=== PATIENT | male | born 1950 | race Caucasian/White ===

== ENCOUNTER 2016-12-08 17:39 | Emergency (ER) | payer MEDICARE, OTHER ==
[2016-12-08 17:59] VITALS: BP 144/81
[2016-12-08] MEDS ORDERED: KETOROLAC TROMETHAMINE 30 MG/ML VIAL IM ONE (18:15)
[2016-12-08] MEDS ORDERED: KETOROLAC TROMETHAMINE 30 MG/ML VIAL ONE (18:19)
--- NOTE | 2016-12-08 18:23 | ERNOTE ---
Trauma/Assault HPI - Narrative Date of Service: 12/08/16 - General Stated Complaint: RIB PAIN Time Seen by Provider: 12/08/16 18:10 Source: patient Exam Limitations: no limitations - Immun/Allergies/Home Medications Immunizations: IMMUNIZATION HX Immunizations Up to Date Yes Immunizations Comment shingles History of Influenza Vaccine Yes Hx Pneumococcal Vaccination Yes Allergies/Adverse Reactions: Allergies No Known Allergies Allergy (Verified 12/08/16 17:59) Home Medications: HOME MEDICATIONS Albuterol Sulfate [Proair Hfa] 1 each INH DAILY 12/08/16 [Last Taken Unknown] Ascorbic Acid [Vitamin C] 500 mg PO DAILY 12/08/16 [Last Taken Unknown] Atorvastatin Calcium 80 mg PO DAILY 12/08/16 [Last Taken Unknown] Calcium Polycarbophil [Fibercon] PO DAILY 12/08/16 [Last Taken Unknown] Cholecalciferol [Vitamin D] 1 each PO DAILY 12/08/16 [Last Taken Unknown] HYDROcodone/ACETAMINOPHEN [[place] 5-325] 1 each PO Q6H #30 tablet 12/08/16 [Last Taken Unknown] Hydrochlorothiazide [Hydrodiuril] 25 mg PO DAILY 12/08/16 [Last Taken Unknown] Ipratropium [place] [Atrovent] 0.5 IN PRN PRN 12/08/16 [Last Taken Unknown] Levothyroxine Sodium [Synthroid] 100 mcg PO DAILY 12/08/16 [Last Taken Unknown] Multivitamin with Folic Acid [One Daily Multivitamin Tablet] 1 each PO DAILY [Last Taken Unknown] Potassium Chloride [K-Dur] 20 meq PO DAILY 12/08/16 [Last Taken Unknown] Tiotropium [place] [Spiriva Respimat] 1 each INH DAILY 12/08/16 [Last Taken Unknown] Toprol Xl 25 mg PO DAILY 12/08/16 [Last Taken Unknown] Tramadol HCl [Rybix Odt] 50 mg PO PRN PRN 12/08/16 [Last Taken Unknown] Travoprost [Travatan Z] 5 ml OP DAILY 12/08/16 [Last Taken Unknown] Vitamin B12 500 mg PO DAILY 12/08/16 [Last Taken Unknown] - Pain Pain Score #1 Pain Score: 10 - History of Present Illness Date (Duration): 12/08/16 Time (Timing): 08:00 Narrative: patient is a 66 year old male who presents to [facility] with complaints of right rib cage pain after falling this morning about 0800. Patient states he is currently building a train set and was leaning over painting. States he lost his balance falling into the counter. [place] immediate pain to right rib cage area directly under right breast area. Denies head or back pain. States took Tramadol about 1200 with little relief Location Occurred: Reports: home Pain Location: Reports: chest Method of Injury: Reports: fall Severity: mild Modifying Factors - (Worsens): Reports: movement Loss of Consciousness: Reports: no loss of consciousness Associated Symptoms - Trauma: Reports: other - rib cage pain. Denies: headache , confusion, dizziness, chest pain, shortness of breath, abdominal pain Review of Systems - Review of Systems Constitutional: Present: no symptoms reported EYE: Present: no symptoms reported ENT: Present: no symptoms reported Respiratory: Present: no symptoms reported. Absent: shortness of breath, cough Cardiology: Present: no symptoms reported. Absent: chest pain, palpitations, syncope Gastrointestinal/Abdominal: Present: no symptoms reported Genitourinary: Present: no symptoms reported Musculoskeletal: Present: no symptoms reported. Absent: back pain, muscle pain Skin: Present: no symptoms reported Neurological: Present: no symptoms reported Endocrine: Present: no symptoms reported Hematologic/Lymphatic: Present: no symptoms reported Psych: Present: no symptoms reported - Patient's Past Medical History Patient History - Medical: Diabetes Type 2, Osteoarthritis Patient History - Cardiac/Respiratory: COPD Patient History - Cancer: No Hx of Cancer Patient History - Surgical Procedures: Colonoscopy, Cardiac stent, Pacemaker Patient History - Other: None - Social History Living Situations: alone Abuse History: No History of abuse Psych History: No pertinent hx Smoking Status: Former smoker Do you dip or chew tobacco: No Alcohol Use: none Drug Use: none - Immunizations Immunizations Up to Date: Yes Hx Pneumococcal Vaccination: Yes History of Influenza Vaccine: Yes Physical Exam - Physical Exam General Appearance: Present: wd/wn, alert, no apparent distress Eye Exam: Normal inspection: bilateral, PERRL: bilateral Neck: Present: normal inspection, nontender, supple, full range of motion. Absent: limited range of motion, lymphadenopathy (R), lymphadenopathy (L) Respiratory: Present: no respiratory distress, normal breath sounds, no accessory muscle use, chest nontender, lungs clear. Absent: chest tenderness, respiratory distress, accessory muscle use, crackles, rales, rhonchi, stridor, wheezing Cardiovascular/Chest: Present: regular rate, rhythm, no murmur, normal peripheral pulses, other - right rib cage pain under right breast area Peripheral Pulses: N=norm/S=strong/W=weak/B=bound/A=absent: Radial (R): Normal, Radial (L): Normal Gastrointestinal/Abdominal: Present: normal bowel sounds, nontender, nondistended, soft, no organomegaly Rectal Exam: Present: deferred Male Genitals Exam: Present: deferred Back Exam: Present: normal inspection, normal range of motion, no CVA tenderness , no vertebral tenderness Extremity Exam: Present: normal inspection, non-tender, normal range of motion, no edema Neurological Exam: Present: alert, oriented, normal mood/affect, no motor/ sensory deficits Skin Exam: Present: normal color, warm/dry Lymphatic Exam: Present: no adenopathy ED Progress - Vital Signs Patient's Vital Signs:: I have reviewed the patient's vital signs. Vital Signs: Vital Signs 12/08/16 17:51 Temperature 37.1 C Pulse Rate 77 Respiratory 17 Rate Blood Pressure 144/81 O2 Sat by Pulse 95 Oximetry - X-Ray X-Ray #1 X-Ray: chest Interpretation: Reviewed by me X-ray Comments: bruised vs cracked rib, no flail chest - Progress/Reassessment Chief Complaint: Fall Progress Note-Subjective: 12/08/16 19:16 Pain has lessened to 5/10 Departure Clinical Impression: Contusion of rib on right side Qualifiers: Encounter type: initial encounter Qualified Code(s): S20.211A - Contusion of right front wall of thorax, initial encounter - Departure Disposition: Home Follow Up Needed Instructions: Rib Contusion Additional Instructions: Rib bruising versus cracked ribs. Unable to fully determine on radiology films yet treatment is same. Take [place] for pain, no alcohol or driving. Very important to cough frequently. Use pillow or hand to splint painful area and force self to take deep breaths and cough. Follow up with primary if pain worsens or SOB. At higher risk for pneumonia so watch for fever, chills, body aches, colored sputum. Follow up if these symptoms occur. [place] can make you dizzy/tired. Be careful changing positions. Lots of water since narcotics can increase risk of constipation Referrals: Abhinav Law MD [Primary Care Provider] - Prescriptions: HYDROcodone/ACETAMINOPHEN [[place] 5-325] 1 each PO Q6H #30 tablet
--- OUTSIDE RECORDS SUMMARY | 2016-12-08 18:25 | XMS REPORT | Continuity of Care Document ---
:1950 Author Organization [facility] ([facility]) [place] [address] Phone [phone] Care Team Providers Name Role Phone Vicki Hou Primary Care Provider [phone] Source Comments This disclosure is being made pursuant to the Care Everywhere program, applicable federal and state laws, and may not contain all informaitonavailable regarding this patient.[facility] ([facility]) Active Allergies and Adverse Reactions No Known Allergies Current Medications Prescription Sig. Disp. Refills Start Date End Date Status levothyroxine 150 mcg Take 150 mcg by Active tablet mouth every morning before breakfast atorvastatin 80 mg tablet Take 80 mg by Active mouth every evening hydrochlorothiazide 25 mg Take 50 mg by Active tablet mouth daily potassium chloride 20 mEq Take 20 mEq by Active XR tablet mouth daily albuterol-ipratropium Use 3 mL by Active 2.5-0.5 mg/3 mL inhalation every inhalation solution 6 hours as needed albuterol 90 Use 2 Puffs by Active mcg/Actuation inhaler inhalation every 6 hours as needed metFORMIN 500 mg tablet Take 500 mg by Active mouth 2 times daily with meals ASCORBATE CALCIUM Active (VITAMIN C PO) cyanocobalamin (VITAMIN Active B-12) PO travoprost (TRAVATAN Z) 1 Drop daily. Active 0.004 % ophthalmic solution metoPROLol succinate 25 Take 1 tablet 90 tablet 3 06/11/2016 Active mg XL tablet (25 mg total) by mouth daily. Active Problems Problem Noted Date Cardiac pacemaker in situ, [employer]tronic 06/06/2015 COPD (chronic obstructive pulmonary disease) 06/06/2015 Diabetes 06/06/2015 Asim type 2 second degree heart block 03/21/2015 Coronary artery disease Overview: stent to LAD Hyperlipidemia Hypertension Social History Tobacco Use Types Packs/Day Years Used Date Former Smoker Smokeless Tobacco: Never Used Alcohol Use Drinks/Week oz/Week Comments No Last Filed Vital Signs Vital Sign Reading Time Taken Blood Pressure 128/80 06/11/2016 10:09 AM CDT Pulse 79 06/11/2016 10:09 AM CDT Temperature - - Respiratory Rate - - Height 1.702 m (5' 7.01") 06/11/2016 10:10 AM CDT Weight 96.163 kg (212 lb) 06/11/2016 10:09 AM CDT Body Mass Index 33.2 06/11/2016 10:09 AM CDT Oxygen Saturation - - Plan of Care Date Type Specialty Providers Description 07/08/2017 Appointment Heart and Vascular Aden Caldera MD Chief Comp: Patient [address] [place] [address] Visit [phone] (Fax) Health Maintenance Due Date Last Done Comments HCV Screening 1950 Hepatitis B Vaccine (1 of 3 - Primary Series) 1950 Tdap Vaccine 1960 DIABETIC: Cholesterol 1968 Diabetic: Hdl 1968 DIABETIC: Hemoglobin A1C 1967 Diabetic: Ldl 1968 DIABETIC: Microalbumin 1968 DIABETIC: Triglycerides 1968 Td Vaccine 1968 Colonoscopy 1999 Prostate Cancer Screening 1999 Zoster Vaccine 2009 Pneumococcal Vaccine (1 of 2 - PCV13) 2014 DIABETIC: Foot Exam 06/06/2015 DIABETIC: Retinal Eye Exam 06/06/2015 Influenza Vaccine: Seasonal (#1) 04/22/2016 Results from Last 3 Months Not on file
[2016-12-08] MEDS ORDERED: HYDROcodone/ACETAMINOPHEN 1 EACH TABLET PO ONE (19:37)
[2016-12-08] MEDS ORDERED: HYDROcodone/ACETAMINOPHEN 1 EACH TABLET ONE (19:39)
== END 2016-12-08 19:46 | disposition home or self-care (01) ==
LOC: ER 17:39
DX: S20.211A Contusion of right front wall of thorax, initial encounter (principal); W18.39XA Other fall on same level, initial encounter; Y93.89 Activity, other specified; Y92.009 Unspecified place in unspecified non-institutional (private) residence as the place of occurrence of the external cause; Y99.8 Other external cause status; E11.9 Type 2 diabetes mellitus without complications; M19.90 Unspecified osteoarthritis, unspecified site

== ENCOUNTER 2016-12-31 06:40 | Inpatient (IN) | payer MEDICARE, OTHER ==
[~2016-12-31 06:40] MED LIST: MORPHINE SULFATE 15 MG TABLET.SA PO PRN; ROPIVACAINE HCL/PF 100 MG, EPINEPHrine 0.2 MG, KETOROLAC TROMETHAMINE 30 MG in NORMAL S... IJ PRN; TRANEXAMIC ACID 1,000 MG in NORMAL SALINE 100 ML IV PRN; ceFAZolin SODIUM 1 GM VIAL IV PRN
--- OUTSIDE RECORDS SUMMARY | 2016-12-31 06:44 | XMS REPORT | Continuity of Care Document ---
:1950 Author Organization [facility] ([facility]) [place] [address] Phone [phone] Care Team Providers Name Role Phone Vicki Hou Primary Care Provider [phone] Source Comments This disclosure is being made pursuant to the Care Everywhere program, applicable federal and state laws, and may not contain all informaitonavailable regarding this patient.[facility] ([facility]) Active Allergies and Adverse Reactions No Known [...] Patient [address] [place] [place] [address] Visit [phone] (Fax) Health Maintenance Due Date Last Done [...]
[2016-12-31] MEDS: RINGERS SOLUTION,LACTATED 1,000 ML IV PRN ×2 (07:19→08:50)
[2016-12-31] MEDS ORDERED: RINGERS SOLUTION,LACTATED 1,000 ML IV ONE ×2 (09:30→10:58)
[2016-12-31] MEDS ORDERED: PROMETHAZINE HCL 5 MG in DEXTROSE 5 % IN WATER 50 ML IV PRN ×2 (11:53)
[2016-12-31] MEDS ORDERED: diphenhydrAMINE HCL 50 MG/ML VIAL IV PRN (11:53)
[2016-12-31] MEDS ORDERED: MAG HYDROX/ALUMINUM HYD/SIMETH 30 ML UDC PO PRN (11:53)
[2016-12-31] MEDS ORDERED: ONDANSETRON HCL/PF 2 MG/ML VIAL IV PRN (11:53)
[2016-12-31] MEDS ORDERED: MAGNESIUM HYDROXIDE 30 ML UDC PO PRN (11:53)
[2016-12-31] MEDS ORDERED: ACETAMINOPHEN 500 MG TABLET PO PRN (11:53)
[2016-12-31] MEDS ORDERED: oxyCODONE HCL/ACETAMINOPHEN 1 TAB TABLET PO PRN (11:53)
--- NOTE | 2016-12-31 11:53 | OR ---
Operative Report - Dictated Report Narrative: Date: 12/31/2016 Preoperative diagnosis: Right Knee degenerative joint disease. Postoperative diagnosis: Right Knee degenerative joint disease. Procedure: Right Total knee arthroplasty. Surgeon: Manjit Mike M.D. Elementary Special Education Teacher: Griselda Crocker PA-C Anesthesia: Spinal with regional block and local periarticular joint injection. Complications: None Specimens: Bone for disposal. Estimated blood loss: Minimal. Tourniquet time: 80 Minutes at 325 millimeters of mercury. Retained implants: Depuy Attune size 7 right lugged cemented posterior stabilized femoral component. Size 6 fixed-bearing cemented tibial platform. Size 7 by 5 millimeter posterior stabilized cross-linked tibial insert. 35 millimeter medialized patella button. Indications: Tree Is a 66-year-old male with bilateral knee pain. This patient was followed in my clinic for period of time with significant complaints of right knee pain consistent with arthritic changes. They had failed conservative measures including but not limited to activity modification, passage of time, medications, and other conservative measures. Patient wished to proceed with surgical treatment. The risks, benefits, and alternatives were discussed in clinic. The risks of , blood clots, bleeding, infection, nerve/tendon blood vessel/ injury, malposition of components, intraoperative fracture, postoperative limited range of motion, persistent pain, failure of components, and need for additional procedures. Patient wished to proceed consent was obtained after answering all questions. Procedure: After marking the correct extremity on the floor, the patient was taken to the operating room. A timeout was performed. IV antibiotics consisting of 2 g of Ancef were administered prior to the procedure. A regional followed by spinal anesthetic was induced by anesthesia. on the operative table with all bony prominences well-padded. Madsen catheter was placed and a bump was placed under the operative side buttock. SCDs and GRISELDA hose were utilized on the nonoperative leg. A well-padded tourniquet was applied to the operative thigh. The operative leg was then pre-scrubbed with alcohol and prepped and draped in a standard sterile fashion. After exsanguinating the extremity with an Esmarch bandage, the tourniquet was inflated. After marking out the anterior knee for standard incision centered over the patella, the skin was incised and dissected down to the joint retinaculum. The joint retinaculum was marked out as well as the horizontal axis of the patella, and a standard medial parapatellar arthrotomy was then made. The most proximal aspect of the quadriceps tendon and the patella tendon insertion were protected from release. A partial synovectomy was performed as well as a resection of the infrapatellar fat pad. The distal femoral fat pad proximal to the trochlea was also resected using cautery. The soft tissues were elevated off the medial aspect of the proximal tibia using a Murray elevator ensuring that we did not transect the medial collateral ligament. Upon initial evaluation range of motion was approximately 5 degrees to 110 degrees of flexion. There were signs of advanced arthrosis in the medial and patellofemoral joint spaces with a large osteochondral lesion of the medial femoral condyle measuring 1.5 x 2 cm and approximately 5 mm deep. There were large marginal osteophytes which were removed with a rongeur. The knee was hyperflexed and the patella was tucked laterally. Protecting the surrounding soft tissues with Homans, an entry drill was placed down the femoral canal using Whitesides line for guidance into the entry point. The intramedullary femoral alignment fausto was utilized in order to cut the distal femur in 5 of valgus resecting 10 millimeters of bone. Next the distal femur was sized to a size 7. An anterior referencing guide was utilized to place the distal femoral cutting block in 3 of external rotation. This was pinned into place. The rotation was confirmed both visually and based on anatomic landmarks. The 4 in 1 cutting jig of the appropriate size was utilized in order to make all bony cuts. Retractors were utilized in order to protect surrounding soft tissues. This cut did not result in any excessive notching. We then cut the box centered over the distal femur. This allowed for resection of the anterior and posterior cruciate ligaments. I then turned my attention to the preparation of the tibia. Using an extra medullary tibial alignment fausto, 2 millimeters of bone was resected off the medial articular surface. This was made perpendicular to the mechanical axis of the joint with the alignment fausto centered over the ankle mortise. The alignment fausto was parallel to the mechanical axis, centered over the medial one third of the tibial tubercle, paralleling the anterior surface of the tibia. We then turned our attention to the remaining meniscus and soft tissues. These were removed while protecting the surrounding ligaments and soft tissues. The marginal osteophytes off the anterior, posterior, medial, lateral aspects of the femur and tibia were removed. The tibia was sized out to a size 6. Next the tibia was drilled and punched in an externally rotated position as confirmed with a drop fausto. Next the trial femur and a series of tibial inserts were utilized in order to allow for full extension and maximal flexion. It was found that a 5 millimeter insert gave the best range of motion and stability at multiple flexion points as well as at full extension there was less than 2 mm of gapping both medially and laterally. There is minimal anterior translation with the knee at 90 of flexion and no signs of being able to dislocate the knee. The patella was then prepared. The initial thickness was 21 millimeters. This was reamed down to 15 millimeters parallel to the anterior surface of the patella. It was sized out to a size 35 mm medialized patella button. This was then drilled and trialed. Without any medial restraint the patella tracked appropriately and did not sublux or dislocate. At this point, it was felt these were the appropriate sized implants and all trials were removed. The bony surfaces were thoroughly irrigated with a pulsatile-suction saline irrigation device. A bone plug from the prior resected anterior chamfer cut was placed into the drill hole at the distal femur. The bony surfaces were then dried in preparation for placement of the implants. The cement was vacuum mixed per the lawn mower repairer's instructions. The cement was placed on the dry bony surfaces and posterior aspect of the implants. The implants were impacted into place, removing all extruded cement. At this point anesthesia administered tranexamic acid per protocol intravenously. The knee was placed in extension with axial loading with the trial insert while the cement cured. A dilute 0.35% betadyne-saline solution was used to irrigate the knee and allowed to sit in the knee while the cement cured. Once the cement cured, all remaining extruded cement was removed. The knee was placed through a range of motion with the trial insert to ensure appropriate range of motion and stability. Final range of motion was approximately 0 to 130 degrees. The knee was again thoroughly irrigated with pulsatile saline lavage. The final polyethylene insert was then impacted into place ensuring no retained soft tissues. The standard periarticular joint injection consisting of ropivacaine, Toradol, and epinephrine were injected into the periarticular joint tissues. The knee was then packed with lap sponges which were soaked with dilute betadyne solution and the tourniquet was let down. Pressure was held for approximately 2 minutes and then hemostasis was obtained using electrocautery to coagulate any bleeding vessels. The knee was then placed over a triangle and the arthrotomy was closed with interrupted # 1 Vicryl after thoroughly irrigating the joint. The deep and subcutaneous tissues were closed with interrupted oh and 3-0 Vicryl respectively. Skin was closed with a running subcutaneous 3-0 Monocryl and maryjane. Xeroform, 4 x 4's , ABD, Sof-Rol, and a full leg Ye wrap were applied. All sponge, needle, blade , and instrument counts were correct prior to closing the wounds. Postoperative condition: The patient was awoken and transferred to the postanesthesia care unit in stable condition. Plan is to be admitted to the inpatient medical/surgical floor postoperatively for 24 hours of IV antibiotics , physical therapy, occupational therapy, and medical co-management. Patient will be weightbearing as tolerated with range of motion as tolerated. DVT prophylaxis will be with SCDs, GRISELDA hose, and pharmacological anticoagulation. Anticipated hospital stay is approximately 2-4 days.
[2016-12-31] MEDS: NORMAL SALINE 1,000 ML IV PRN ×2 (12:39→21:39)
[2016-12-31] MEDS: ceFAZolin SODIUM 1 GM in DEXTROSE 5 % IN WATER 100 ML IV SCH ×4 (13:58→19:05)
[2016-12-31] MEDS: oxyCODONE HCL/ACETAMINOPHEN 1 TAB TABLET PO PRN ×2 (16:42→21:19)
[2016-12-31] MEDS: SENNOSIDES/DOCUSATE SODIUM 1 TAB TABLET PO SCH (21:21)
[2017-01-01] MEDS: oxyCODONE HCL/ACETAMINOPHEN 1 TAB TABLET PO PRN ×3 (01:37→11:35)
[2017-01-01] MEDS: ceFAZolin SODIUM 1 GM in DEXTROSE 5 % IN WATER 100 ML IV SCH ×2 (01:38)
[2017-01-01] MEDS: MORPHINE SULFATE 2 MG/ML DISP.SYRIN IV PRN ×5 (03:14→23:37)
[2017-01-01 05:35] LABS: Hematocrit 33.8 % (42.0-52.0); Hemoglobin 10.9 gm/dL (13.5-18.0); Mean Cell Volume 93.1 fl (78-100); Mean Corpuscular Hgb Conc 32.2 g/dl (32-36); Mean Platelet Volume 9.9 fl (6.0-9.5); Platelet Count 150 K/mm3 (150-450); Red Blood Count 3.63 M/mm3 (4.7-6.0); Red Cell Distribution Width 13.7 % (11.5-14.0); White Blood Count 8.6 K/mm3 (4.0-10.5)
[2017-01-01 06:02] LABS: Anion Gap 10.1 mmol/L (6.8-13.8); BUN/Creatinine Ratio 13.4 (9.0-21.6); Calcium * 8.1 mg/dL (7.9-10.9); Carbon Dioxide 26.9 mmol/L (24-32.6); Estimated Creat Clear 69.1
--- NOTE | 2017-01-01 09:02 | PN ---
Subjective - Date and Time Seen Date: 01/01/17 Subjective Narrative: Increased pain overnight, better controlled this am. No other complaints. Objective - Vitals Vitals: Last Vital Signs Temp 37.6 C H 01/01/17 08:03 Pulse 86 01/01/17 08:03 Resp 20 01/01/17 08:03 BP 117/58 01/01/17 08:03 Pulse Ox 92 01/01/17 08:03 - Abnormal Lab Findings Abnormal Lab Findings: Abnormal Lab Results 01/01/17 01/01/17 Range/Units 05:19 05:19 RBC 3.63 L (4.7-6.0) M/mm3 Hgb 10.9 L (13.5-18.0) gm/dL Hct 33.8 L (42.0-52.0) % MPV 9.9 H (6.0-9.5) fl Random Glucose 135 H (70-110) mg/dL - Exam Exam Narrative: Gen: A&Ox4, NAD Resp: breathing non-labored on RA MSK: RLE--> dressings c/d/i, 5/5 EHL/FHL/DF/PF, SILT, cap refill brisk Cauti Physician Documentation - Urinary Catheter Management Urethral (Feliciano) Date of Insertion: 12/31/16 Time of Insertion: 09:15 Assessment/Plan Plan Narrative: 66 yo M s/p R TKA, POD #1. - WBAT, ROM as tolerated - reg diet - oral pain meds - feliciano out today - PT/OT - acute blood loss anemia - Hgb 10.9 today, continue to monitor - DVT ppx: lovenox/SCDs/julia lee - dispo: continue inpatient care
[2017-01-01] MEDS: MULTIVIT WITH IRON-MINERALS 1 TAB TABLET PO SCH (09:32)
[2017-01-01] MEDS: HYDROCHLOROTHIAZIDE 25 MG TABLET PO SCH (09:33)
[2017-01-01] MEDS: POTASSIUM CHLORIDE 20 MEQ TABLET.SA PO SCH (09:33)
[2017-01-01] MEDS: MAGNESIUM OXIDE 400 MG TABLET PO SCH (09:34)
[2017-01-01] MEDS: LEVOTHYROXINE SODIUM 100 MCG TABLET PO SCH (09:34)
[2017-01-01] MEDS: TIOTROPIUM BROMIDE 5 CAP INHALER IH SCH (09:34)
[2017-01-01] MEDS: METOPROLOL SUCCINATE 25 MG TABLET.SA PO SCH (09:35)
[2017-01-01] MEDS: ENOXAPARIN SODIUM 40 MG/0.4 ML SYRG SC SCH (10:35)
[2017-01-01] MEDS: MORPHINE SULFATE 15 MG TABLET.SA PO SCH ×2 (12:20→23:37)
[2017-01-01] MEDS ORDERED: HYDROmorphone HCL 1 MG/ML DISP.SYRIN IV ONE (12:30)
[2017-01-01] MEDS: oxyCODONE HCL 5 MG TABLET PO PRN ×3 (13:06→21:03)
--- NOTE | 2017-01-01 16:20 | PN ---
Subjective - Date and Time Seen Date: 01/01/17 Time: 10:00 Subjective Narrative: Patient seen and examined at bedside this AM. No acute issues overnight. Patient having post-op right knee pain which is expected and he states the pain is fairly well controlled on his current pain medications. Madsen out and patient states he has been urinating on his own without issues. He has also had a BM since surgery. Objective - Review of Systems Generalized/Overall Review: Reports: No Symptoms Reported EENTM: Reports: No Symptoms Reported Respiratory: Reports: No Symptoms Reported Cardiac: Reports: No Symptoms Reported Abdominal: Reports: No Symptoms Reported Genitourinary Symptoms: Reports: No Symptoms Reported Musculoskeletal Complaints: Reports: Joint Pain, Other - post-op right knee pain Neurological: Reports: No Symptoms Reported Skin: Reports: No Symptoms Reported Endocrine: Reports: No Symptoms Reported Misc: All systems neg except as marked - Vitals Vitals: Last Vital Signs Temp 38.1 C H 01/01/17 15:00 Pulse 83 01/01/17 15:00 Resp 15 01/01/17 15:00 BP 116/68 01/01/17 15:00 Pulse Ox 93 01/01/17 15:00 - Abnormal Lab Findings Abnormal Lab Findings: Abnormal Lab Results 01/01/17 01/01/17 Range/Units 05:19 05:19 RBC 3.63 L (4.7-6.0) M/mm3 Hgb 10.9 L (13.5-18.0) gm/dL Hct 33.8 L (42.0-52.0) % MPV 9.9 H (6.0-9.5) fl Random Glucose 135 H (70-110) mg/dL - Exam Constitutional: Present: Alert, Oriented x3, Cooperative, Well developed, Well nourished, No distress, Obese ENT Exam: Present: hearing grossly normal, moist mucous membranes Respiratory: Present: no respiratory distress, no accessory muscle use, wheezing - expiratory wheezes bilaterally Cardiovascular/Chest: Present: regular rate, rhythm Abdomen: Present: soft, nontender, nondistended, hypoactive Extremity: Present: other - s/p right TKA with dressing and compression stocking in place Skin Exam: Present: warm/dry, no cyanosis Neurologic: Present: no motor/sensory deficits, alert, normal mood/affect, oriented x 3 Appearance: Present: appropriate appearance, appropriate insight, neat, no memory impairment Eye contact: Present: cooperative, good eye contact, normal speech Thoughts: Present: normal thought pattern, no apparent hallucination Cauti Physician Documentation - Urinary Catheter Management Urethral (Madsen) Date of Insertion: 12/31/16 Time of Insertion: 09:15 Date of Removal: 01/01/17 Time of Removal: 09:45 Assessment/Plan Plan Narrative: IMPRESSION & PLAN: Right knee OA -S/P right TKA by Dr. Mike on 12.31.2016 -Post-op pain control per ortho Acute Post-Operative Anemia -Hemoglobin 10.9. No prior history of anemia. Continue to monitor and recheck in AM. CHRONIC, STABLE MEDICAL CONDITIONS: Benign Essential Hypertension: BP well controlled. Continue home medications of HCTZ and Toprol XL. COPD: Continue home medications of Spiriva and PRN Duonebs and ProAir. Hypothyroidism: Continue home dose of levothyroxine. Hyperlipidemia: Continue home statin. VTE ppx: Lovenox Code Status: Full Code Disposition: Plan is for patient to discharge to a SNF on Friday (01.03.2017). - Problems/Diagnosis (1) Degenerative joint disease of knee, right Problem: Acute
[2017-01-01] MEDS: ALBUTEROL SULFATE/IPRATROPIUM 3 ML NEBU IH PRN (17:43)
[2017-01-01] MEDS: TRAVOPROST 25 DROP BTL OP SCH (21:02)
[2017-01-01] MEDS: SENNOSIDES/DOCUSATE SODIUM 1 TAB TABLET PO SCH (21:03)
[2017-01-01] MEDS: ROSUVASTATIN CALCIUM 10 MG TABLET PO SCH (21:03)
[2017-01-02 05:27] LABS: Hemoglobin 10.9 gm/dL (13.5-18.0); Mean Cell Volume 91.7 fl (78-100); Mean Corpuscular Hemoglobin 30.3 pg (27-31); Mean Platelet Volume 9.6 fl (6.0-9.5); Platelet Count 136 K/mm3 (150-450); Red Cell Distribution Width 13.4 % (11.5-14.0); White Blood Count 13.9 K/mm3 (4.0-10.5)
[2017-01-02] MEDS: oxyCODONE HCL 5 MG TABLET PO PRN ×3 (07:06→19:24)
[2017-01-02] MEDS: TIOTROPIUM BROMIDE 5 CAP INHALER IH SCH (09:00)
[2017-01-02] MEDS: MULTIVIT WITH IRON-MINERALS 1 TAB TABLET PO SCH (09:01)
[2017-01-02] MEDS: MAGNESIUM OXIDE 400 MG TABLET PO SCH (09:02)
[2017-01-02] MEDS: HYDROCHLOROTHIAZIDE 25 MG TABLET PO SCH (09:02)
[2017-01-02] MEDS: METOPROLOL SUCCINATE 25 MG TABLET.SA PO SCH (09:02)
[2017-01-02] MEDS: POTASSIUM CHLORIDE 20 MEQ TABLET.SA PO SCH (09:02)
[2017-01-02] MEDS: LEVOTHYROXINE SODIUM 100 MCG TABLET PO SCH (09:03)
[2017-01-02] MEDS: ENOXAPARIN SODIUM 40 MG/0.4 ML SYRG SC SCH (11:03)
[2017-01-02] MEDS: MORPHINE SULFATE 15 MG TABLET.SA PO SCH ×2 (11:06→23:34)
--- NOTE | 2017-01-02 13:13 | PN ---
Subjective - Date and Time Seen Date: 01/02/17 Time: 13:09 Subjective Narrative: Patient seen and examined at bedside this AM. No acute issues overnight. Patient having post-op right knee pain which is expected and he states the pain is fairly well controlled on his current pain medications. Madsen out and patient states he has been urinating on his own without issues. He has also had a BM since surgery. Patient denies any new issues or concerns this AM. Objective - Review of Systems Generalized/Overall Review: Reports: No Symptoms Reported EENTM: Reports: No Symptoms Reported Respiratory: Reports: No Symptoms Reported Cardiac: Reports: No Symptoms Reported Abdominal: Reports: No Symptoms Reported Genitourinary Symptoms: Reports: No Symptoms Reported Musculoskeletal Complaints: Reports: Joint Pain, Other - post-op right knee pain Neurological: Reports: No Symptoms Reported Skin: Reports: No Symptoms Reported Endocrine: Reports: No Symptoms Reported Misc: All systems neg except as marked - Vitals Vitals: Last Vital Signs Temp 37.4 C 01/02/17 12:38 Pulse 79 01/02/17 12:38 Resp 18 01/02/17 12:38 BP 128/65 01/02/17 12:38 Pulse Ox 97 01/02/17 12:38 - Abnormal Lab Findings Abnormal Lab Findings: Abnormal Lab Results 01/02/17 Range/Units 05:24 WBC 13.9 H D (4.0-10.5) K/mm3 RBC 3.60 L (4.7-6.0) M/mm3 Hgb 10.9 L (13.5-18.0) gm/dL Hct 33.0 L (42.0-52.0) % Plt Count 136 L (150-450) K/mm3 MPV 9.6 H (6.0-9.5) fl - Exam Constitutional: Present: Alert, Oriented x3, Cooperative, Well developed, Well nourished, No distress, Obese ENT Exam: Present: hearing grossly normal, moist mucous membranes Respiratory: Present: lungs clear, normal breath sounds, no respiratory distress , no accessory muscle use Cardiovascular/Chest: Present: regular rate, rhythm Abdomen: Present: soft, nontender, nondistended Extremity: Present: other - S/P right TKA with dressing and compression stocking in place Skin Exam: Present: warm/dry, no cyanosis Neurologic: Present: no motor/sensory deficits, alert, normal mood/affect, oriented x 3 Appearance: Present: appropriate appearance, appropriate insight, neat, no memory impairment Eye contact: Present: cooperative, good eye contact, normal speech Thoughts: Present: normal thought pattern, no apparent hallucination Cauti Physician Documentation - Urinary Catheter Management Urethral (Madsen) Date of Insertion: 12/31/16 Time of Insertion: 09:15 Date of Removal: 01/01/17 Time of Removal: 09:45 Assessment/Plan Plan Narrative: IMPRESSION & PLAN: Right knee OA -S/P right TKA by Dr. Mike on 12.31.2016 -Post-op pain control per ortho -Discontinue IVFs Acute Post-Operative Anemia -Hemoglobin stable at 10.9. No prior history of anemia. Leukocytosis -Increase in WBC count to 13.9 today (WBC count yesterday 8.6) -No obvious signs of infection. Possible reactive. No indication for antibiotics at this time. -Continue to monitor and recheck CBC in AM. If patient starts to have fevers or if he begins to spike fevers, appropriate infectious work-up should be completed including UA with culture if indicated, CXR, etc. CHRONIC, STABLE MEDICAL CONDITIONS: Benign Essential Hypertension: BP well controlled. Continue home medications of HCTZ and Toprol XL. COPD: Continue home medications of Spiriva and PRN Duonebs and ProAir. Hypothyroidism: Continue home dose of levothyroxine. Hyperlipidemia: Continue home statin. VTE ppx: Lovenox. Given the patient's history of hypertension, hyperlipidemia and pre-diabetes, I would recommend starting a baby aspirin indefinitely after completion of post-op VTE ppx as determined by ortho. Code Status: Full Code Disposition: Plan is for patient to discharge to a SNF tomorrow (01.03.2017). - Problems/Diagnosis (1) Degenerative joint disease of knee, right Problem: Acute
[2017-01-02] MEDS: TRAVOPROST 25 DROP BTL OP SCH (20:33)
[2017-01-02] MEDS: ROSUVASTATIN CALCIUM 10 MG TABLET PO SCH (20:34)
[2017-01-02] MEDS: SENNOSIDES/DOCUSATE SODIUM 1 TAB TABLET PO SCH (20:34)
[2017-01-02] MEDS: ALBUTEROL SULFATE/IPRATROPIUM 3 ML NEBU IH PRN (20:42)
[2017-01-03] MEDS: oxyCODONE HCL 5 MG TABLET PO PRN ×2 (00:20→09:01)
[2017-01-03 05:51] LABS: Hematocrit 31.9 % (42.0-52.0); Hemoglobin 10.5 gm/dL (13.5-18.0); Mean Cell Volume 90.9 fl (78-100); Mean Corpuscular Hemoglobin 29.9 pg (27-31); Mean Corpuscular Hgb Conc 32.9 g/dl (32-36); Mean Platelet Volume 10.4 fl (6.0-9.5); Neutrophil # 10.1 K/mm3 (1.3-6.0); Platelet Count 157 K/mm3 (150-450); Red Blood Count 3.51 M/mm3 (4.7-6.0); Red Cell Distribution Width 13.3 % (11.5-14.0); White Blood Count 12.3 K/mm3 (4.0-10.5)
[2017-01-03 06:02] LABS: Anion Gap 6.1 mmol/L (6.8-13.8); BUN/Creatinine Ratio 8.7 (9.0-21.6); Carbon Dioxide 32.1 mmol/L (24-32.6); Estimated Creat Clear 64.4; Potassium 3.2 mmol/L (3.4-4.6)
[2017-01-03 06:26] VITALS: BP 132/70
--- NOTE | 2017-01-03 08:32 | PN ---
Subjective - Date and Time Seen Date: 01/02/17 Subjective Narrative: No events overnight. Pain much better controlled this am. Still having difficulty ambulating. Objective - Vitals Vitals: Last Vital Signs Temp 37.0 C 01/03/17 06:25 Pulse 77 01/03/17 06:25 Resp 18 01/03/17 06:25 BP 132/70 01/03/17 06:25 Pulse Ox 97 01/03/17 06:25 - Abnormal Lab Findings Abnormal Lab Findings: Abnormal Lab Results 01/03/17 01/03/17 Range/Units 05:40 05:40 WBC 12.3 H (4.0-10.5) K/mm3 RBC 3.51 L (4.7-6.0) M/mm3 Hgb 10.5 L (13.5-18.0) gm/dL Hct 31.9 L (42.0-52.0) % MPV 10.4 H (6.0-9.5) fl Immature Gran % (Auto) 0.50 H (0.001-0.429) % Immature Gran # (Auto) 0.06 H (0.000-0.0310) K/mm3 Neutrophils % 82.0 H (42-75.0) % Lymphocytes % 8.0 L (20-51) % Neutrophils # 10.1 H (1.3-6.0) K/mm3 Lymphocytes # 1.0 L (1.5-3.5) k/mm3 Monocytes # 1.1 H (0.0-1.0) k/mm3 Potassium 3.2 L (3.4-4.6) mmol/L Anion Gap 6.1 L (6.8-13.8) mmol/L BUN/Creatinine Ratio 8.7 L (9.0-21.6) Random Glucose 166 H (70-110) mg/dL - Exam Exam Narrative: MSK: RLE--> dressings c/d/i, / EHL/FHL/DF/PF, SILT, cap refill brisk Cauti Physician Documentation - Urinary Catheter Management Urethral (Madsen) Date of Insertion: 12/31/16 Time of Insertion: 09:15 Date of Removal: 01/01/17 Time of Removal: 09:45 Assessment/Plan Plan Narrative: 66 yo M s/p R TKA, POD #2. - WBAT, ROM as tolerated - reg diet - oral pain meds - adjusted d/t increased pain - PT/OT - acute blood loss anemia - Hgb 10.9 today, continue to monitor - WBC mildly elevated likely secondary to surgery - monitor - DVT ppx: lovenox/SCDs/julia lee - dispo: continue inpatient care, plan for d/c to SNF tomorrow
--- NOTE | 2017-01-03 08:35 | PN ---
Subjective - Date and Time Seen Date: 01/03/17 Objective Objective Narrative: No events overnight. Pain controlled. Complaining of hiccups this am. - Vitals Vitals: Last Vital Signs Temp 37.0 C 01/03/17 06:25 Pulse 77 01/03/17 06:25 Resp 18 01/03/17 06:25 BP 132/70 01/03/17 06:25 Pulse Ox 97 01/03/17 06:25 - Abnormal Lab Findings Abnormal Lab Findings: Abnormal Lab Results 01/03/17 01/03/17 Range/Units 05:40 05:40 WBC 12.3 H (4.0-10.5) K/mm3 RBC 3.51 L (4.7-6.0) M/mm3 Hgb 10.5 L (13.5-18.0) gm/dL Hct 31.9 L (42.0-52.0) % MPV 10.4 H (6.0-9.5) fl Immature Gran % (Auto) 0.50 H (0.001-0.429) % Immature Gran # (Auto) 0.06 H (0.000-0.0310) K/mm3 Neutrophils % 82.0 H (42-75.0) % Lymphocytes % 8.0 L (20-51) % Neutrophils # 10.1 H (1.3-6.0) K/mm3 Lymphocytes # 1.0 L (1.5-3.5) k/mm3 Monocytes # 1.1 H (0.0-1.0) k/mm3 Potassium 3.2 L (3.4-4.6) mmol/L Anion Gap 6.1 L (6.8-13.8) mmol/L BUN/Creatinine Ratio 8.7 L (9.0-21.6) Random Glucose 166 H (70-110) mg/dL - Exam Exam Narrative: MSK: RLE--> dressings taken down, incision without erythema or drainage, Prineo dressing with good seal, 5/5 EHL/FHL/DF/PF, SILT, cap refill brisk Cauti Physician Documentation - Urinary Catheter Management Urethral (Madsen) Date of Insertion: 12/31/16 Time of Insertion: 09:15 Date of Removal: 01/01/17 Time of Removal: 09:45 Assessment/Plan Plan Narrative: 66 yo M s/p R TKA, POD #3. - WBAT, ROM as tolerated - reg diet - oral pain meds - PT/OT - acute blood loss anemia - Hgb 10.5 today, stable - WBC trending back down as expected - DVT ppx: dorothyx/SCDs/julia lee - dispo: d/c to SNF today
--- NOTE | 2017-01-03 08:53 | DS ---
(1) Degenerative joint disease of knee, right Problem: Acute Description of Stay: The patient was taken to the OR on 12/31/16 for R total knee arthroplasty. He tolerated the procedure well and there were no complications. He was admitted to the floor postoperatively where he remained stable. Vitals and labs were followed. He resumed a regular diet and normal bladder and bowel function. His pain was controlled with oral pain medications. He made gains with PT. Wound was followed and showed good signs of healing. He was deemed stable for discharge on POD #3 to SNF. Procedures Performed: see notes below List Procedures: R total knee arthroplasty - 12/31/16 [place] [facility] [place] [facility] [place] Condition: Good Discharge Activity: Activity as tolerated Discharge Diet: General/regular food Discharge Level of Care:: SNF - [facility] Therapy: Physicial Therapy Referrals: Abhinav Law MD [Primary Care Provider] - Additional Patient Instructions (free text): Orthopedic Discharge Instructions 1. WBAT, ROM as tolerated. No pillows behind the knee when in bed. 2. Oral pain medications 3. May shower with wound uncovered. There is a waterproof dressing over the incision. This must be inspected daily to make sure it is not peeling up. If dressing peels up or if there is any wound drainage, discontinue showers and switch to sponge baths and keep wound dressed with 4x4 gauze and tape. 4. May use ice machine for 20 min at a time as often as every hour. Cover wound with NORM wrap when using ice machine. 5. DVT prophylaxis: lovenox for a total of 10 days after surgery then switch to aspirin 325 mg daily for 6 weeks. 6. Please call the Orthopedic clinic at [phone] for any questions or concerns. 7. Follow up in the office with Dr. Mike on Friday01/15/17 at 9:30. To [facility] Prescriptions (Any new or edited meds): Aspirin 325 mg PO DAILY #42 tablet Enoxaparin Sodium [Lovenox] 40 mg SC Q24H #7 disp.syrin Morphine Sulfate [Ms Contin] 15 mg PO Q12H #20 tablet.sa Sennosides/Docusate Sodium [Senokot-S] 2 tab PO HS #30 tablet oxyCODONE HCL/ACETAMINOPHEN [Percocet 5-325 mg Tablet] 1 - 2 each PO Q4H PRN # 90 tablet PRN Reason: Pain Complete Home Medications List: Complete Home Medication List: Albuterol Sulfate [Proair Hfa] 1 - 2 each INH Q4H PRN 12/08/16 Ascorbic Acid [Vitamin C] 500 mg PO DAILY 12/08/16 Atorvastatin Calcium 80 mg PO DAILY 12/08/16 Calcium Polycarbophil [Fibercon] 625 mg PO DAILY 12/08/16 Cholecalciferol [Vitamin D] 1 each PO DAILY 12/08/16 Hydrochlorothiazide [Hydrodiuril] 25 mg PO DAILY 12/08/16 Levothyroxine Sodium [Synthroid] 100 mcg PO DAILY 12/08/16 Potassium Chloride [K-Dur] 20 meq PO DAILY 12/08/16 Tiotropium [place] [Spiriva Respimat] 2 each INH DAILY 12/08/16 Travoprost [Travatan Z] 1 drop OP HS 12/08/16 Albuterol Sulfate/Ipratropium [Duoneb 2.5-0.5MG/3ML Soln] 3 ml IH BID PRN Blood-Glucose Meter [Blood Glucose Monitoring] 1 each MC 2XW 12/13/16 Calcium Carbonate/Vitamin D3 [Calcium 500-Vit D3 400 Tablet] 1 each PO DAILY Cyanocobalamin (Vitamin B-12) [Vitamin B-12] 500 mcg PO DAILY 12/13/16 Glucocil 2 tab PO BID 12/13/16 Magnesium Oxide [Mag-Ox 400] 400 mg PO DAILY 12/13/16 Metoprolol Succinate [Toprol Xl] 25 mg PO DAILY 12/13/16 Multivit-Min/FA/Vit K/Lycopene [One-A-Day Men's 50 Plus Tablet] 1 each PO DAILY 12/13/16 Aspirin 325 mg PO DAILY #42 tablet 01/03/17 Enoxaparin Sodium [Lovenox] 40 mg SC Q24H #7 disp.syrin 01/03/17 Morphine Sulfate [Ms Contin] 15 mg PO Q12H #20 tablet.sa 01/03/17 Sennosides/Docusate Sodium [Senokot-S] 2 tab PO HS #30 tablet 01/03/17 oxyCODONE HCL/ACETAMINOPHEN [Percocet 5-325 mg Tablet] 1 - 2 each PO Q4H PRN # 90 tablet 01/03/17
[2017-01-03] MEDS: TIOTROPIUM BROMIDE 5 CAP INHALER IH SCH (09:01)
[2017-01-03] MEDS: METOPROLOL SUCCINATE 25 MG TABLET.SA PO SCH (09:02)
[2017-01-03] MEDS: MULTIVIT WITH IRON-MINERALS 1 TAB TABLET PO SCH (09:02)
[2017-01-03] MEDS: POTASSIUM CHLORIDE 20 MEQ TABLET.SA PO SCH (09:02)
[2017-01-03] MEDS: HYDROCHLOROTHIAZIDE 25 MG TABLET PO SCH (09:02)
[2017-01-03] MEDS: LEVOTHYROXINE SODIUM 100 MCG TABLET PO SCH (09:02)
[2017-01-03] MEDS: MAGNESIUM OXIDE 400 MG TABLET PO SCH (09:02)
[2017-01-03] MEDS ORDERED: POTASSIUM CHLORIDE 20 MEQ TABLET.SA PO ONE (10:53)
--- NOTE | 2017-01-03 10:55 | PN ---
Subjective - Date and Time Seen Date: 01/03/17 Time: 10:54 Subjective Narrative: Patient seen and examined at bedside this AM. No acute issues overnight. Patient having post-op right knee pain which is expected and he states the pain is controlled on his current pain medications. Madsen out and patient states he has been urinating on his own without issues. He has also had a BM since surgery. Patient denies any new issues or concerns this AM. Planning to discharge to SNF today. Objective - Review of Systems Generalized/Overall Review: Reports: No Symptoms Reported EENTM: Reports: No Symptoms Reported Respiratory: Reports: No Symptoms Reported Cardiac: Reports: No Symptoms Reported Abdominal: Reports: No Symptoms Reported Genitourinary Symptoms: Reports: No Symptoms Reported Musculoskeletal Complaints: Reports: Joint Pain - Postop right knee pain controlled with pain meds as needed Neurological: Reports: No Symptoms Reported Skin: Reports: No Symptoms Reported Endocrine: Reports: No Symptoms Reported Misc: All systems neg except as marked - Vitals Vitals: Last Vital Signs Temp 37.0 C 01/03/17 06:25 Pulse 77 01/03/17 09:02 Resp 18 01/03/17 06:25 BP 132/70 01/03/17 09:02 Pulse Ox 97 01/03/17 06:25 - Abnormal Lab Findings Abnormal Lab Findings: Abnormal Lab Results 01/03/17 01/03/17 Range/Units 05:40 05:40 WBC 12.3 H (4.0-10.5) K/mm3 RBC 3.51 L (4.7-6.0) M/mm3 Hgb 10.5 L (13.5-18.0) gm/dL Hct 31.9 L (42.0-52.0) % MPV 10.4 H (6.0-9.5) fl Immature Gran % (Auto) 0.50 H (0.001-0.429) % Immature Gran # (Auto) 0.06 H (0.000-0.0310) K/mm3 Neutrophils % 82.0 H (42-75.0) % Lymphocytes % 8.0 L (20-51) % Neutrophils # 10.1 H (1.3-6.0) K/mm3 Lymphocytes # 1.0 L (1.5-3.5) k/mm3 Monocytes # 1.1 H (0.0-1.0) k/mm3 Potassium 3.2 L (3.4-4.6) mmol/L Anion Gap 6.1 L (6.8-13.8) mmol/L BUN/Creatinine Ratio 8.7 L (9.0-21.6) Random Glucose 166 H (70-110) mg/dL - Exam Constitutional: Present: Alert, Oriented x3, Cooperative, Well developed, Well nourished, No distress, Obese ENT Exam: Present: hearing grossly normal, moist mucous membranes Respiratory: Present: lungs clear, normal breath sounds, no respiratory distress , no accessory muscle use Cardiovascular/Chest: Present: regular rate, rhythm Abdomen: Present: soft, nontender, obese Extremity: Present: other - S/P right TKA with dressing and compression stocking in place Skin Exam: Present: no cyanosis, other - S/P right TKA with dressing and compression stocking in place Neurologic: Present: no motor/sensory deficits, alert, normal mood/affect, oriented x 3 Appearance: Present: appropriate appearance, appropriate insight, neat, no memory impairment Eye contact: Present: cooperative, good eye contact, normal speech Thoughts: Present: normal thought pattern, no apparent hallucination Cauti Physician Documentation - Urinary Catheter Management Urethral (Madsen) Date of Insertion: 12/31/16 Time of Insertion: 09:15 Date of Removal: 01/01/17 Time of Removal: 09:45 Assessment/Plan Plan Narrative: IMPRESSION & PLAN: Right knee OA -S/P right TKA by Dr. Mike on 12.31.2016 -Post-op pain control per ortho Acute Post-Operative Anemia -Hemoglobin stable. No signs of active bleeding. No prior history of anemia. Leukocytosis -WBC coming down today -No obvious signs of infection. Possible reactive. No indication for antibiotics at this time. -Continue to monitor for fevers at SNF. If patient starts to have fevers or if he begins to spike fevers, appropriate infectious work-up should be completed including UA with culture if indicated, CXR, etc. -Recommend recheck hemogram within the next week to monitor for resolution of leukocytosis Hypokalemia -Give KCl 40mEq now -Recommended rechecking BMP within the next week CHRONIC, STABLE MEDICAL CONDITIONS: Benign Essential Hypertension: BP well controlled. Continue home medications of HCTZ and Toprol XL. COPD: Continue home medications of Spiriva and PRN Duonebs and ProAir. Hypothyroidism: Continue home dose of levothyroxine. Hyperlipidemia: Continue home statin. VTE ppx: Lovenox. Given the patient's history of hypertension, hyperlipidemia and pre-diabetes, I would recommend starting a baby aspirin indefinitely after completion of post-op VTE ppx as determined by ortho. Code Status: Full Code Disposition: Plan is for patient to discharge to a SNF today. Okay to discharge from my standpoint. - Problems/Diagnosis (1) Degenerative joint disease of knee, right Problem: Acute (2) Hypokalemia Problem: Acute (3) Leukocytosis Problem: Acute (4) Postoperative anemia due to acute blood loss Problem: Acute
== END 2017-01-03 09:30 | DRG 470 ==
LOC: MS 06:40
PROVIDERS: ADMIT Orthopaedic Surgery; ATTEND Orthopaedic Surgery
PROC: 0SRC0J9 Replacement of Right Knee Joint with Synthetic Substitute, Cemented, Open Approach (ICD-10-PCS; principal; 2016-12-31 09:30)
DX: M17.0 Bilateral primary osteoarthritis of knee (principal); D62 Acute posthemorrhagic anemia; I10 Essential (primary) hypertension; I25.10 Atherosclerotic heart disease of native coronary artery without angina pectoris; E78.5 Hyperlipidemia, unspecified; E03.9 Hypothyroidism, unspecified; J44.9 Chronic obstructive pulmonary disease, unspecified; Z95.5 Presence of coronary angioplasty implant and graft; Z95.0 Presence of cardiac pacemaker

== ENCOUNTER 2017-08-19 13:22 | Inpatient (IN) | payer MEDICARE, OTHER ==
[2017-08-19 13:57] LABS: Hematocrit 38.5 % (42.0-52.0); Hemoglobin 12.7 gm/dL (13.5-18.0); Mean Cell Volume 88.9 fl (78-100); Mean Corpuscular Hemoglobin 29.3 pg (27-31); Mean Platelet Volume 9.4 fl (6.0-9.5); Neutrophil # 3.7 K/mm3 (1.3-6.0); Neutrophil % 57.2 % (42-75.0); Platelet Count 222 K/mm3 (150-450); Red Blood Count 4.33 M/mm3 (4.7-6.0); Red Cell Distribution Width 13.9 % (11.5-14.0); White Blood Count 6.4 K/mm3 (4.0-10.5)
[2017-08-19] MEDS ORDERED: ALBUTEROL SULFATE 2.5 MG/0.5 ML VIAL.NEB IH PRN (14:28)
[2017-08-19] MEDS ORDERED: ALBUTEROL SULFATE/IPRATROPIUM 3 ML NEBU IH PRN (14:28)
[2017-08-19] MEDS ORDERED: NON-FORMULARY 1 DOSE DOSE (Blood-Glucose Meter [Blood Glucose Monitoring] 1 EACH) MC SCH (14:30)
[2017-08-19] MEDS: CEFEPIME HCL 1 GM in NORMAL SALINE 100 ML IV SCH (14:37)
[2017-08-19] MEDS ORDERED: VANCOMYCIN HCL 1 GM in DEXTROSE 5 % IN WATER 250 ML IV ONE ×2 (15:00)
[2017-08-19 15:01] LABS: ALT 17 U/L (19-67); AST 19 U/L (0-48); Albumin * 3.8 gm/dl (3.4-5.0); Alkaline Phosphatase * 117 U/L (50-170); Anion Gap 12.9 mmol/L (6.8-13.8); BUN/Creatinine Ratio 14.3 (9.0-21.6); Bilirubin, Total 0.4 mg/dL (0.0-1.1); Blood Urea Nitrogen 13 mg/dL (6-23); Ca. Corrected For Albumin 9.3 mg/dL (8.4-10.2); Calcium * 9.5 mg/dL (7.9-10.9); Carbon Dioxide 28.2 mmol/L (24-32.6); Chloride 102 mmol/L (97-106); Glucose * 95 mg/dL (70-110); Potassium 4.1 mmol/L (3.4-4.6); Sodium 139 mmol/L (132-142); Uric Acid 3.8 mg/dL (2.6-7.2)
[2017-08-19] MEDS: ENOXAPARIN SODIUM 40 MG/0.4 ML SYRG SC SCH (17:33)
[2017-08-19] MEDS: ATORVASTATIN CALCIUM 40 MG TABLET PO SCH (21:19)
[2017-08-19] MEDS: GLUCOCIL PO SCH (21:19)
[2017-08-19] MEDS: SENNOSIDES/DOCUSATE SODIUM 1 TAB TABLET PO SCH (21:20)
[2017-08-19] MEDS: TRAVOPROST 25 DROP BTL OP SCH (21:22)
[2017-08-20] MEDS: CEFEPIME HCL 1 GM in NORMAL SALINE 100 ML IV SCH ×2 (02:24→14:13)
[2017-08-20] MEDS ORDERED: VANCOMYCIN HCL 1 GM in NORMAL SALINE 250 ML IV SCH (03:00)
[2017-08-20] MEDS: LEVOTHYROXINE SODIUM 100 MCG TABLET PO SCH (06:47)
[2017-08-20] MEDS ORDERED: ACETAMINOPHEN 325 MG TABLET PO PRN (06:58)
--- NOTE | 2017-08-20 07:37 | PN ---
Subjective - Date and Time Seen Date: 08/20/17 Time: 07:27 Subjective Narrative: He feels less tight on his knee. Objective - Review of Systems Generalized/Overall Review: Denies: Chills, Fever Respiratory: Denies: Cough, Shortness of Breath Cardiac: Reports: Edema. Denies: Chest Pain, Palpitations Abdominal: Denies: Nausea, Vomiting Genitourinary Symptoms: Denies: Urgency, Frequency Musculoskeletal Complaints: Reports: Joint Pain - Vitals Vitals: Last Vital Signs Temp 36.8 C 08/20/17 06:44 Pulse 66 08/20/17 06:44 Resp 17 08/20/17 06:44 BP 130/76 08/20/17 06:44 Pulse Ox 98 08/20/17 06:44 - Abnormal Lab Findings Abnormal Lab Findings: Abnormal Lab Results 08/19/17 08/19/17 08/19/17 Range/Units 13:47 13:47 13:47 RBC 4.33 L (4.7-6.0) M/mm3 Hgb 12.7 L (13.5-18.0) gm/dL Hct 38.5 L (42.0-52.0) % Immature Gran % (Auto) 0.90 H (0.001-0.429) % Immature Gran # (Auto) 0.06 H (0.000-0.0310) K/mm3 Monocytes % 11.1 H (0.0-9) % Eosinophils % 4.1 H (0.0-3.0) % ESR 16 H (0-10) mm/hr ALT 17 L (19-67) U/L - Exam Constitutional: Present: Alert, Oriented x3, Cooperative ENT Exam: Present: hearing grossly normal Neck: Present: supple Respiratory: Present: normal breath sounds, No rales, No wheezing Cardiovascular/Chest: Present: regular rate, rhythm, no JVD, no murmur Abdomen: Present: soft, nontender, nondistended Extremity: Present: lower extremity edema - improved, swelling - improved, other - redness- decreaased Skin Exam: Present: warm/dry Assessment/Plan - Problems/Diagnosis (1) Cellulitis of right lower extremity Problem: Acute Narrative: failed outpatient treatment. with some clinical improvement after IV antibiotics. will defer from doing Venous Doppler US (2) Hypothyroidism Problem: Chronic Narrative: continue with home medications (3) Hypertension Problem: Chronic Qualifiers: Hypertension type: essential hypertension Qualified Code(s): I10 - Essential (primary) hypertension Narrative: continue with home medications (4) Coronary artery disease Problem: Chronic Narrative: continue with home medications (5) Hyperlipidemia Problem: Chronic Narrative: continue with home medications.
[2017-08-20] MEDS: CALCIUM POLYCARBOPHIL 625 MG TABLET PO SCH (08:15)
[2017-08-20] MEDS: HYDROCHLOROTHIAZIDE 25 MG TABLET PO SCH (08:15)
[2017-08-20] MEDS: ASCORBIC ACID 500 MG TABLET PO SCH (08:15)
[2017-08-20] MEDS: CALCIUM CARBONATE/VITAMIN D3 1 TAB TABLET PO SCH (08:15)
[2017-08-20] MEDS: METOPROLOL SUCCINATE 25 MG TABLET.SA PO SCH (08:15)
[2017-08-20] MEDS: MULTIVIT-MIN/FA/LYCOPEN/LUTEIN 1 TAB TABLET PO SCH (08:15)
[2017-08-20] MEDS: POTASSIUM CHLORIDE 20 MEQ TABLET.SA PO SCH (08:15)
[2017-08-20] MEDS: ASPIRIN 325 MG TABLET.DR PO SCH (08:15)
[2017-08-20] MEDS: CHOLECALCIFEROL 1,000 UNIT CAPSULE PO SCH (08:16)
[2017-08-20] MEDS: CYANOCOBALAMIN 1,000 MCG TABLET PO SCH (08:16)
[2017-08-20] MEDS: TIOTROPIUM BROMIDE 5 CAP INHALER IH SCH (08:16)
[2017-08-20] MEDS: MAGNESIUM OXIDE 400 MG TABLET PO SCH (08:16)
[2017-08-20] MEDS: GLUCOCIL PO SCH ×2 (08:17→17:52)
[2017-08-20] MEDS: VANCOMYCIN HCL 1.25 GM in NORMAL SALINE 250 ML IV SCH (14:55)
[2017-08-20] MEDS: ENOXAPARIN SODIUM 40 MG/0.4 ML SYRG SC SCH (17:44)
[2017-08-20] MEDS: SENNOSIDES/DOCUSATE SODIUM 1 TAB TABLET PO SCH (20:34)
[2017-08-20] MEDS: TRAVOPROST 25 DROP BTL OP SCH (20:35)
[2017-08-20] MEDS: ATORVASTATIN CALCIUM 40 MG TABLET PO SCH (20:35)
[2017-08-21] MEDS: CEFEPIME HCL 1 GM in NORMAL SALINE 100 ML IV SCH ×2 (02:05→14:51)
[2017-08-21] MEDS: VANCOMYCIN HCL 1.25 GM in NORMAL SALINE 250 ML IV SCH ×2 (02:41→15:38)
[2017-08-21] MEDS: LEVOTHYROXINE SODIUM 100 MCG TABLET PO SCH (06:01)
[2017-08-21] MEDS: GLUCOCIL PO SCH ×2 (07:34→17:35)
[2017-08-21] MEDS: CHOLECALCIFEROL 1,000 UNIT CAPSULE PO SCH (08:12)
[2017-08-21] MEDS: MULTIVIT-MIN/FA/LYCOPEN/LUTEIN 1 TAB TABLET PO SCH (08:13)
[2017-08-21] MEDS: CALCIUM POLYCARBOPHIL 625 MG TABLET PO SCH (08:13)
[2017-08-21] MEDS: MAGNESIUM OXIDE 400 MG TABLET PO SCH (08:13)
[2017-08-21] MEDS: CYANOCOBALAMIN 1,000 MCG TABLET PO SCH (08:13)
[2017-08-21] MEDS: ASCORBIC ACID 500 MG TABLET PO SCH (08:13)
[2017-08-21] MEDS: CALCIUM CARBONATE/VITAMIN D3 1 TAB TABLET PO SCH (08:13)
[2017-08-21] MEDS: HYDROCHLOROTHIAZIDE 25 MG TABLET PO SCH (08:13)
[2017-08-21] MEDS: POTASSIUM CHLORIDE 20 MEQ TABLET.SA PO SCH (08:13)
[2017-08-21] MEDS: TIOTROPIUM BROMIDE 5 CAP INHALER IH SCH (08:14)
[2017-08-21] MEDS: METOPROLOL SUCCINATE 25 MG TABLET.SA PO SCH (08:16)
[2017-08-21] MEDS: ASPIRIN 325 MG TABLET.DR PO SCH (08:21)
--- NOTE | 2017-08-21 08:22 | PN ---
Subjective - Date and Time Seen Date: 08/21/17 Time: 08:18 Subjective Narrative: Patient NAD. Afebrile. Day 2 of IV antibiotics. BC -NG x 24 hours. Objective - Review of Systems Generalized/Overall Review: Denies: Weakness, Chills, Fever Respiratory: Denies: Cough, Shortness of Breath Cardiac: Denies: Chest Pain, Edema, Palpitations Abdominal: Denies: Nausea, Vomiting Genitourinary Symptoms: Denies: Urgency, Frequency Musculoskeletal Complaints: Reports: Joint Pain - Vitals Vitals: Last Vital Signs Temp 36.9 C 08/21/17 07:08 Pulse 69 08/21/17 08:16 Resp 18 08/21/17 07:08 BP 120/75 08/21/17 08:16 Pulse Ox 95 08/21/17 07:08 - Exam Constitutional: Present: Alert, Oriented x3, Cooperative ENT Exam: Present: hearing grossly normal Neck: Present: supple Respiratory: Present: normal breath sounds, No rales, No wheezing Cardiovascular/Chest: Present: regular rate, rhythm, no JVD, no murmur Abdomen: Present: Normal bowel sounds, soft, nontender, nondistended Extremity: Present: swelling, other - erythema Assessment/Plan - Problems/Diagnosis (1) Cellulitis of right lower extremity Problem: Acute Narrative: continue with IV antibiotics. (2) Hypothyroidism Problem: Chronic Narrative: continue with home medications (3) Hypertension Problem: Chronic Qualifiers: Hypertension type: essential hypertension Qualified Code(s): I10 - Essential (primary) hypertension Narrative: continue with home medications (4) Coronary artery disease Problem: Chronic Narrative: continue with home medications (5) Hyperlipidemia Problem: Chronic Narrative: continue with home medications.
[2017-08-21] MEDS: ENOXAPARIN SODIUM 40 MG/0.4 ML SYRG SC SCH (17:15)
[2017-08-21] MEDS: SENNOSIDES/DOCUSATE SODIUM 1 TAB TABLET PO SCH (21:29)
[2017-08-21] MEDS: TRAVOPROST 25 DROP BTL OP SCH (21:31)
[2017-08-21] MEDS: ATORVASTATIN CALCIUM 40 MG TABLET PO SCH (21:31)
[2017-08-22] MEDS: CEFEPIME HCL 1 GM in NORMAL SALINE 100 ML IV SCH (02:07)
[2017-08-22] MEDS: VANCOMYCIN HCL 1.25 GM in NORMAL SALINE 250 ML IV SCH (03:03)
[2017-08-22 05:54] LABS: Hematocrit 38.4 % (42.0-52.0); Hemoglobin 12.2 gm/dL (13.5-18.0); Mean Cell Volume 90.6 fl (78-100); Mean Corpuscular Hemoglobin 28.8 pg (27-31); Mean Corpuscular Hgb Conc 31.8 g/dl (32-36); Mean Platelet Volume 9.3 fl (6.0-9.5); Neutrophil # 3.4 K/mm3 (1.3-6.0); Neutrophil % 55.3 % (42-75.0); Platelet Count 192 K/mm3 (150-450); Red Blood Count 4.24 M/mm3 (4.7-6.0); Red Cell Distribution Width 13.7 % (11.5-14.0); White Blood Count 6.2 K/mm3 (4.0-10.5)
[2017-08-22 06:02] LABS: Anion Gap 8.7 mmol/L (6.8-13.8); BUN/Creatinine Ratio 14.9 (9.0-21.6); Blood Urea Nitrogen 15 mg/dL (6-23); Calcium * 8.8 mg/dL (7.9-10.9); Carbon Dioxide 30.2 mmol/L (24-32.6); Chloride 103 mmol/L (97-106); Estimated Creat Clear 66.4; Glucose * 95 mg/dL (70-110); Potassium 3.9 mmol/L (3.4-4.6); Sodium 138 mmol/L (132-142)
[2017-08-22 06:41] VITALS: BP 128/74
[2017-08-22] MEDS: ASPIRIN 325 MG TABLET.DR PO SCH ×2 (07:44→08:00)
[2017-08-22] MEDS: GLUCOCIL PO SCH (07:44)
[2017-08-22] MEDS: HYDROCHLOROTHIAZIDE 25 MG TABLET PO SCH ×2 (07:45→08:00)
[2017-08-22] MEDS: CALCIUM CARBONATE/VITAMIN D3 1 TAB TABLET PO SCH ×2 (07:45→08:00)
[2017-08-22] MEDS: CHOLECALCIFEROL 1,000 UNIT CAPSULE PO SCH ×2 (07:45→08:01)
[2017-08-22] MEDS: MULTIVIT-MIN/FA/LYCOPEN/LUTEIN 1 TAB TABLET PO SCH ×2 (07:45→08:00)
[2017-08-22] MEDS: CALCIUM POLYCARBOPHIL 625 MG TABLET PO SCH ×2 (07:45→08:00)
[2017-08-22] MEDS: MAGNESIUM OXIDE 400 MG TABLET PO SCH ×2 (07:45→08:01)
[2017-08-22] MEDS: METOPROLOL SUCCINATE 25 MG TABLET.SA PO SCH ×2 (07:46→08:01)
[2017-08-22] MEDS: POTASSIUM CHLORIDE 20 MEQ TABLET.SA PO SCH ×2 (07:46→08:01)
[2017-08-22] MEDS: CYANOCOBALAMIN 1,000 MCG TABLET PO SCH ×2 (07:46→08:01)
[2017-08-22] MEDS: ASCORBIC ACID 500 MG TABLET PO SCH ×2 (07:46→08:01)
[2017-08-22] MEDS: TIOTROPIUM BROMIDE 5 CAP INHALER IH SCH ×2 (07:52→08:01)
--- NOTE | 2017-08-22 08:27 | DS ---
(1) Cellulitis of right lower extremity Problem: Acute (2) Hypothyroidism Problem: Chronic (3) Hypertension Problem: Chronic Qualifiers: Hypertension type: essential hypertension Qualified Code(s): I10 - Essential (primary) hypertension (4) Coronary artery disease Problem: Chronic (5) Hyperlipidemia Problem: Chronic Description of Stay: Tree العلي, is a 66-year-old white male, with previous medical history of hypertension hypothyroidism COPD pacemaker placement for AV block, second-degree , who was admitted on 08/19/2017 because of increasing swelling and redness of his right leg and foot. His swelling and redness started a couple of days before 07/29/2017. He was started on Keflex 500 mg by mouth 3 times a day for 14 days then. He followed up in the office on the day of admission, and stated that he feels his cellulitis is creeping up and starting to affect his right knee where he has total knee replacement. He could feel tightness in his knee joint. He denied any fever or chills, denied any trauma to this leg or insect bites. He does admit to scratching his legs. He was then admitted to the hospital for IV antibiotics having failed outpatient treatment . His imaging studies did not show any acute osseous findings. His ESR was 16 and the rest of his labs were essentially WNL. He was started on IV cefepime and Vanco. His swelling and redness has improved . He has received 3 days of IV antibiotics. We will discharge him today on oral Levaquin and Bactrim and will see the patient back on Friday in the office. We will also likely refer him to Dr. Toledo on outpatient basis. Procedures Performed: none Discharge Disposition: Home self care Disposition: Home self-care Condition: Good Discharge Activity: Activity as tolerated, Other - elevate right leg whenever he can Referrals: Abhinav Law MD [Primary Care Provider] - Additional Patient Instructions (free text): TCM at discharge, unless long term at discharge. Thank you! Coco at ext: [id number]. Follow up with me on Friday. Elevate legs whenever he can. Prescriptions (Any new or edited meds): Acetaminophen [Tylenol] 650 mg PO Q6H PRN #30 tablet PRN Reason: Mild Pain/Fever Levofloxacin [Levaquin] 750 mg PO DAILY #7 tablet Sulfamethoxazole/Trimethoprim [Bactrim Ds] 1 tab PO BID #20 tab Complete Home Medications List: Complete Home Medication List: Albuterol Sulfate [Proair Hfa] 2 puff IH QID PRN 08/19/17 Ascorbic Acid [Vitamin C] 500 mg PO DAILY 08/19/17 Atorvastatin Calcium 80 mg PO HS 08/19/17 Bupropion HCl [Bupropion HCl Sr] 150 mg PO DAILY 08/19/17 Calcium Carbonate/Vitamin D3 [Calcium 500-Vit D3 400 Tablet] 1 each PO DAILY Calcium Polycarbophil [Fibercon] 2 tab PO DAILY 08/19/17 Cholecalciferol (Vitamin D3) [Vitamin D3] 1,000 unit PO DAILY 08/19/17 Cyanocobalamin [Vitamin B-12] 1,000 mcg PO DAILY 08/19/17 Glucocil 2 tab PO BIDWM 08/19/17 Glucosam/Ac-Col.cplx/D3/C/Mn [Gjttbvkdbcf-Eouwhlvuylr-O2 Cap] 1 each PO DAILY 08/19/17 Hydrochlorothiazide [Hydrodiuril] 25 mg PO DAILY 08/19/17 Ipratropium/Albuterol Sulfate [Iprat-Albut 0.5-3(2.5) mg/3 ml] 3 ml IH BID 08/19 Levothyroxine Sodium [Synthroid] 100 mcg PO DAILY 08/19/17 Magnesium Oxide [Magnesium] 800 mg PO DAILY 08/19/17 Metoprolol Succinate [Toprol Xl] 25 mg PO DAILY 08/19/17 Multivitamin with Iron [Multivitamins with Iron] 1 each PO DAILY 08/19/17 Potassium Chloride [Klor-Con M20] 20 meq PO DAILY 08/19/17 Tiotropium [place] [Spiriva Respimat] 2 puff IH DAILY 08/19/17 Travoprost [Travatan Z] 2.5 ml OP DAILY 08/19/17 traMADol HCL [Tramadol HCl] 50 mg PO Q6H PRN 08/19/17 Acetaminophen [Tylenol] 650 mg PO Q6H PRN #30 tablet 08/22/17 Levofloxacin [Levaquin] 750 mg PO DAILY #7 tablet 08/22/17 Sulfamethoxazole/Trimethoprim [Bactrim Ds] 1 tab PO BID #20 tab 08/22/17
[2017-08-22] MEDS: LEVOTHYROXINE SODIUM 100 MCG TABLET PO SCH (10:29)
[2017-08-22] MEDS ORDERED: VANCOMYCIN HCL LEVEL XX ONE (14:30)
== END 2017-08-22 10:22 | disposition home or self-care (01) | DRG 603 ==
LOC: MS 13:22
PROVIDERS: ADMIT Internal Medicine; ATTEND Internal Medicine
DX: L03.115 Cellulitis of right lower limb (principal); E03.9 Hypothyroidism, unspecified; I10 Essential (primary) hypertension; I25.10 Atherosclerotic heart disease of native coronary artery without angina pectoris; E78.5 Hyperlipidemia, unspecified; Z95.5 Presence of coronary angioplasty implant and graft; Z95.0 Presence of cardiac pacemaker

== ENCOUNTER 2017-11-05 00:32 | Inpatient (IN) | payer MEDICARE, OTHER ==
[2017-11-05 01:04] LABS: Hemoglobin 12.1 gm/dL (13.5-18.0); Mean Cell Volume 87.6 fl (78-100); Mean Corpuscular Hemoglobin 29.4 pg (27-31); Mean Corpuscular Hgb Conc 33.6 g/dl (32-36); Mean Platelet Volume 9.7 fl (6.0-9.5); Neutrophil # 9.3 K/mm3 (1.3-6.0); Neutrophil % 83.5 % (42-75.0); Platelet Count 184 K/mm3 (150-450); Red Blood Count 4.11 M/mm3 (4.7-6.0); Red Cell Distribution Width 14.1 % (11.5-14.0); White Blood Count 11.2 K/mm3 (4.0-10.5)
--- NOTE | 2017-11-05 01:19 | ERNOTE ---
Dyspnea - General Presenting Symptoms: shortness of breath Time Seen by Provider: 11/05/17 00:48 Source: patient Exam Limitations: no limitations - Immun/Allergies/Home Medications Immunizations: IMMUNIZATION HX Immunizations Up to Date Yes History of Influenza Vaccine Yes Hx Pneumococcal Vaccination Yes Allergies/Adverse Reactions: Allergies No Known Allergies Allergy (Verified 08/19/17 14:44) Home Medications: HOME MEDICATIONS Albuterol Sulfate [Proair Hfa] 2 puff IH QID PRN 08/19/17 [Last Taken Unknown] Ascorbic Acid [Vitamin C] 500 mg PO DAILY 08/19/17 [Last Taken Unknown] Atorvastatin Calcium 80 mg PO HS 08/19/17 [Last Taken 08/19/17] Bupropion HCl [Bupropion HCl Sr] 150 mg PO DAILY 08/19/17 [Last Taken 08/19/17] Calcium Carbonate/Vitamin D3 [Calcium 500-Vit D3 400 Tablet] 1 each PO DAILY [Last Taken 08/19/17] Cholecalciferol (Vitamin D3) [Vitamin D3] 1,000 unit PO DAILY 08/19/17 [Last Taken Unknown] Cyanocobalamin [Vitamin B-12] 1,000 mcg PO DAILY 08/19/17 [Last Taken 08/19/17] Glucocil 2 tab PO BIDWM 08/19/17 [Last Taken Unknown] Glucosam/Ac-Col.cplx/D3/C/Mn [Yrchpmpojxv-Aosmlgfzuln-U7 Cap] 1 each PO DAILY 08/19/17 [Last Taken 08/19/17] Hydrochlorothiazide [Hydrodiuril] 25 mg PO DAILY 08/19/17 [Last Taken 08/19/17] Ipratropium/Albuterol Sulfate [Iprat-Albut 0.5-3(2.5) mg/3 ml] 3 ml IH BID 08/19 [Last Taken Unknown] Levothyroxine Sodium [Synthroid] 100 mcg PO DAILY 08/19/17 [Last Taken 08/19/17] Magnesium Oxide [Magnesium] 400 mg PO DAILY 08/19/17 [Last Taken 08/19/17] Metoprolol Succinate [Toprol Xl] 25 mg PO DAILY 08/19/17 [Last Taken 08/19/17] Multivitamin with Iron [Multivitamins with Iron] 1 each PO DAILY 08/19/17 [Last Taken Unknown] Potassium Chloride [Klor-Con M20] 20 meq PO DAILY 08/19/17 [Last Taken 08/19/17] Tiotropium [place] [Spiriva Respimat] 2 puff IH DAILY 08/19/17 [Last Taken 08/19] Travoprost [Travatan Z] 2.5 ml OP DAILY 08/19/17 [Last Taken Unknown] traMADol HCL [Tramadol HCl] 50 mg PO Q6H PRN 08/19/17 [Last Taken Unknown] Acetaminophen [Tylenol] 650 mg PO Q6H PRN #30 tablet 08/22/17 [Last Taken Unknown] - History of Present Illness Narrative: shortness of breath onset 2 days ago. Worsening tonight Severity: moderate Treatment RECLAIMER: by patient, albuterol Initiating event: Reports: unknown Frequency of episodes: Reports: occassional episodes Review of Systems - Review of Systems Constitutional: Present: recent illness, chills, fatigue EYE: Present: no symptoms reported ENT: Absent: nose congestion, nasal drainage Respiratory: Present: See HPI. Absent: orthopnea Cardiology: Absent: chest pain Gastrointestinal/Abdominal: Absent: nausea Genitourinary: Present: no symptoms reported Musculoskeletal: Present: no symptoms reported Skin: Absent: rash Neurological: Present: no symptoms reported Endocrine: Present: flushing Hematologic/Lymphatic: Present: no symptoms reported Psych: Present: no symptoms reported - Patient's Past Medical History Patient History - Medical: Diabetes Type 2, Hypothyroidism, Osteoarthritis Patient History - Cardiac/Respiratory: Coronary Heart Disease, COPD, Hypertension, Hyperlipidemia Patient History - Cancer: No Hx of Cancer Patient History - Surgical Procedures: Colonoscopy, Cardiac stent, EGD, Pacemaker, Total Knee Replacement, T & A Patient History - Other: None - Family History Mother Family History - Medical: , Diabetes Type 2, Osteoarthritis Family History - Cardiac/Respiratory: No pertinent hx Family History - Cancer: Stomach Father Family History - Medical: , No pertinent hx Family History - Cardiac/Respiratory: Aneurysm Family History - Cancer: No pertinent family hx Brother Family History - Medical: Arthritis, Diabetes Type 2 Family History - Cardiac/Respiratory: Myocardial Infarction Family History - Cancer: No pertinent family hx Sister Family History - Medical: , Diabetes Type 2, Rheumatoid Arthritis Family History - Cardiac/Respiratory: No pertinent hx Family History - Cancer: No pertinent family hx - Social History Living Situations: alone Abuse History: No History of abuse Psych History: No pertinent hx Smoking Status: Former smoker Have you smoked in the past 12 months: No Alcohol Use: none Drug Use: none - Immunizations Immunizations Up to Date: Yes Hx Pneumococcal Vaccination: Yes History of Influenza Vaccine: Yes Physical Exam - Physical Exam General Appearance: Present: wd/wn, alert, mild distress Head Exam: Present: normal inspection, no evidence of injury Eye Exam: Normal inspection: bilateral Ears, Nose, Throat: Present: normal ENT inspection Neck: Present: normal inspection, nontender Respiratory: Present: no accessory muscle use, expiration (prolonged), wheezing - occasionally, other - tachypneic, increased work of breathing Cardiovascular/Chest: Present: no murmur, tachycardia Back Exam: Present: no CVA tenderness, no vertebral tenderness Extremity Exam: Present: no edema - on the left, pedal edema - right foot. Absent: calf tenderness Neurological Exam: Present: alert, oriented, normal mood/affect Skin Exam: Present: normal color, warm/dry Lymphatic Exam: Present: no adenopathy ED Progress - Results and Orders Patient's Lab Results:: I have reviewed the patient's lab results. Results and Orders: Laboratory Tests 11/05/17 11/05/17 11/05/17 01:00 01:00 01:23 WBC 11.2 H Hgb 12.1 L Hct 36.0 L Plt Count 184 Neutrophils % 83.5 H Sodium 137 Potassium 3.8 Chloride 101 BUN 11 Creatinine 1.03 Calcium 8.8 Total Bilirubin 0.5 AST 20 ALT 22 Alkaline Phosphatase 129 Troponin I Less than 0.017 B-Natriuretic Peptide 214 Total Protein 6.9 Albumin 3.5 Influenza Type A Ag Positive H Influenza Type B Ag Negative - Vital Signs Patient's Vital Signs:: I have reviewed the patient's vital signs. Vital Signs: Vital Signs 11/05/17 00:34 Temperature 37.6 C H Pulse Rate 104 H Respiratory 26 H Rate Blood Pressure 177/91 O2 Sat by Pulse 97 Oximetry - EKG EKG read: Interp. by me EKG Comments: Ventricular pacemaker - X-Ray X-Ray #1 X-Ray: chest Interpretation: Interp. by me X-ray Comments: No infiltrate or effusion - Progress/Reassessment Chief Complaint: Dyspnea Progress:: Improved Progress Note-Subjective: 11/05/17 03:00 Spoke with Kay VANNP hospitalist. She is present in the ED and agrees with admit. Departure Clinical Impression: Influenza A COPD (chronic obstructive pulmonary disease) Qualifiers: COPD type: COPD with acute lower respiratory infection Qualified Code(s): J44.0 - Chronic obstructive pulmonary disease with acute lower respiratory infection - Departure Disposition: [facility] Condition: Fair
[2017-11-05 01:20] LABS: ALT 22 U/L (19-67); AST 20 U/L (0-48); Albumin * 3.5 gm/dl (3.4-5.0); Alkaline Phosphatase * 129 U/L (50-170); BNP * 214 pg/mL (5-350); BUN/Creatinine Ratio 10.7 (9.0-21.6); Bilirubin, Total 0.5 mg/dL (0.0-1.1); Blood Urea Nitrogen 11 mg/dL (6-23); Ca. Corrected For Albumin 8.9 mg/dL (8.4-10.2); Calcium * 8.8 mg/dL (7.9-10.9); Carbon Dioxide 26.8 mmol/L (24-32.6); Chloride 101 mmol/L (97-106); Glucose * 125 mg/dL (70-110); Potassium 3.8 mmol/L (3.4-4.6); Sodium 137 mmol/L (132-142); Total Protein 6.9 gm/dL (6.2-8.2)
[2017-11-05 01:25] LABS: Troponin I Less than 0.017 ng/ml (0.00-0.10)
[2017-11-05] MEDS ORDERED: ACETAMINOPHEN 500 MG TABLET PO ONE (02:54)
[2017-11-05] MEDS ORDERED: ALBUTEROL SULFATE/IPRATROPIUM 3 ML NEBU IH ONE ×2 (03:09)
[2017-11-05 03:20] LABS: Urine Bilirubin Negative (NEGATIVE); Urine Ketone 5 mg/dL (NEGATIVE); Urine Nitrite Negative (NEGATIVE); Urine Protein 15 mg/dL (NEGATIVE); Urine Specific Gravity 1.025 SP.GR. (1.005-1.030); Urine Urobilinogen Normal (NORMAL)
[2017-11-05 03:21] LABS: Urine Appearance Clear; Urine Bacteria None Seen; Urine Blood Negative /ul (NEGATIVE); Urine Color Yellow; Urine RBC 0-5 /hpf (0-5); Urine WBC 0-5 /hpf (0-5)
[2017-11-05] MEDS ORDERED: KETOROLAC TROMETHAMINE 30 MG/ML VIAL IV ONE (04:02)
[2017-11-05] MEDS ORDERED: LORazepam 0.5 MG TABLET PO PRN (04:03)
[2017-11-05] MEDS ORDERED: CODEINE PHOSPHATE/GUAIFENESIN 5 ML UDC PO PRN (04:03)
[2017-11-05] MEDS ORDERED: guaiFENesin 100 MG/5 ML BTL PO PRN (04:03)
[2017-11-05] MEDS ORDERED: AZITHROMYCIN 250 MG TABLET PO STA (04:03)
--- NOTE | 2017-11-05 04:09 | HP ---
Chief Complaint - Chief Complaint Date of Service: 11/05/17 Time of Service: 03:50 Chief Complaint: shortness of breath, cough, fever History of Present Illness: Tree is a 67 year old male patient of Dr. 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 Patient states that he started to have fevers on Friday. Tonight, the patient became increasingly short of breath which prompted a visit to the ER. In the ER, wbc elevated at 11.2 with 83.5 neutrophils. cmp remarkable for elevated glucose at 125, troponin negative and ua positive for protein only. Patient also tested positive for influenza A. In the ER, the patient spiked a temp of 39.7 degrees, tachycardia continued with HR ranging from 102 to 115 and patient was tachypnic with RR around 28-32. A d-dimer was ordered and came back at 1.38. The patient is scheduled to have a CTA of the chest this am to rule out PE. Patient will need to be admitted for COPD exacerbation and influenza A. - Patient's Past Medical History Patient History - Medical: Diabetes Type 2, Hypothyroidism, Obesity, Osteoarthritis Patient History - Cardiac/Respiratory: Coronary Heart Disease, COPD, Hypertension, Hyperlipidemia Patient History - Cancer: No Hx of Cancer Patient History - Surgical Procedures: Angioplasty, Colonoscopy, Cardiac stent, EGD, Pacemaker, Total Knee Replacement, T & A Patient History - Other: None - Family History Mother Family History - Medical: , Diabetes Type 2, Osteoarthritis Family History - Cardiac/Respiratory: No pertinent hx Family History - Cancer: Stomach Father Family History - Medical: , No pertinent hx Family History - Cardiac/Respiratory: Aneurysm Family History - Cancer: No pertinent family hx Brother Family History - Medical: Arthritis, Diabetes Type 2 Family History - Cardiac/Respiratory: Myocardial Infarction Family History - Cancer: No pertinent family hx Sister Family History - Medical: , Diabetes Type 2, Rheumatoid Arthritis Family History - Cardiac/Respiratory: No pertinent hx Family History - Cancer: No pertinent family hx - Social History Living Situations: alone Abuse History: No History of abuse Psych History: No pertinent hx Smoking Status: Former smoker Have you smoked in the past 12 months: No Alcohol Use: none Drug Use: none - Immunizations Immunizations Up to Date: Yes Hx Pneumococcal Vaccination: Yes History of Influenza Vaccine: Yes Review Of Systems (GEN) - Review of Systems Generalized/Overall Review: Present: Chills, Fever, Malaise EENTM: Present: Nose Congestion, Throat Pain Respiratory: Present: Cough, Shortness of Breath, Wheezing Cardiac: Present: Edema - chronic lower leg edema, per pt.. Absent: Syncope Abdominal: Present: No Symptoms Reported Genitourinary: Present: No Symptoms Reported Musculoskeletal: Present: No Symptoms Reported Neurological: Present: Headache Skin: Present: No Symptoms Reported Endocrine: Present: No Symptoms Reported Misc: All systems neg except as marked Immunizations: IMMUNIZATION HX Immunizations Up to Date Yes History of Influenza Vaccine Yes Hx Pneumococcal Vaccination Yes Allergies/Adverse Reactions: Allergies Allergy/AdvReac Type Severity Reaction Status Date / Time No Known Allergies Allergy Verified 08/19/17 14:44 Home Medications: HOME MEDICATIONS Albuterol Sulfate [Proair Hfa] 2 puff IH QID PRN 08/19/17 [Last Taken Unknown] Ascorbic Acid [Vitamin C] 500 mg PO DAILY 08/19/17 [Last Taken Unknown] Atorvastatin Calcium 80 mg PO HS 08/19/17 [Last Taken 08/19/17] Bupropion HCl [Bupropion HCl Sr] 150 mg PO DAILY 08/19/17 [Last Taken 08/19/17] Calcium Carbonate/Vitamin D3 [Calcium 500-Vit D3 400 Tablet] 1 each PO DAILY [Last Taken 08/19/17] Cholecalciferol (Vitamin D3) [Vitamin D3] 1,000 unit PO DAILY 08/19/17 [Last Taken Unknown] Cyanocobalamin [Vitamin B-12] 1,000 mcg PO DAILY 08/19/17 [Last Taken 08/19/17] Glucocil 2 tab PO BIDWM 08/19/17 [Last Taken Unknown] Glucosam/Ac-Col.cplx/D3/C/Mn [Tvfkziiigvw-Jsrwkgqaqdq-J7 Cap] 1 each PO DAILY 08/19/17 [Last Taken 08/19/17] Hydrochlorothiazide [Hydrodiuril] 25 mg PO DAILY 08/19/17 [Last Taken 08/19/17] Ipratropium/Albuterol Sulfate [Iprat-Albut 0.5-3(2.5) mg/3 ml] 3 ml IH BID 08/19 [Last Taken Unknown] Levothyroxine Sodium [Synthroid] 100 mcg PO DAILY 08/19/17 [Last Taken 08/19/17] Magnesium Oxide [Magnesium] 400 mg PO DAILY 08/19/17 [Last Taken 08/19/17] Metoprolol Succinate [Toprol Xl] 25 mg PO DAILY 08/19/17 [Last Taken 08/19/17] Multivitamin with Iron [Multivitamins with Iron] 1 each PO DAILY 08/19/17 [Last Taken Unknown] Potassium Chloride [Klor-Con M20] 20 meq PO DAILY 08/19/17 [Last Taken 08/19/17] Tiotropium [place] [Spiriva Respimat] 2 puff IH DAILY 08/19/17 [Last Taken 08/19] Travoprost [Travatan Z] 2.5 ml OP DAILY 08/19/17 [Last Taken Unknown] traMADol HCL [Tramadol HCl] 50 mg PO Q6H PRN 08/19/17 [Last Taken Unknown] Exam - Exam Vital Signs: Vital Signs - Last Taken Temp 38.9 C H 11/05/17 03:26 Pulse 116 H 11/05/17 03:26 Resp 32 H 11/05/17 03:26 BP 175/79 11/05/17 03:26 Pulse Ox 94 11/05/17 03:26 Constitutional: Present: Alert, Oriented x3, Cooperative, Mild distress ENT Exam: Present: hearing grossly normal Eye Exam: bilateral eye: normal inspection Neck: Present: supple, trachea midline Breasts: Present: Exam deferred Respiratory: Present: respiratory distress - mild, rhonchi - diffuse, wheezing - scattered Cardiovascular/Chest: Present: tachycardia, systolic murmur, irregularly irregular, edema - +1 lower extremity edema - pt states this is chronic Abdomen: Present: Normal bowel sounds, soft, nontender, obese /Rectal: Present: Exam deferred Extremity: Present: non-tender, normal inspection, no calf tenderness Skin Exam: Present: warm/dry, no cyanosis, pallor Neurologic: Present: alert, oriented x 3 Appearance: Present: appropriate insight, no memory impairment Eye contact: Present: cooperative, good eye contact Diagnostic Studies: Abnormal Lab Results 11/05/17 11/05/17 Range/Units 03:13 03:15 D-Dimer 1.38 H (0.19-0.49) mg/L Urine Protein 15 H (NEGATIVE) mg/dL Laboratory Results WBC 11.2 K/mm3 (4.0-10.5) H 11/05/17 01:00 RBC 4.11 M/mm3 (4.7-6.0) L 11/05/17 01:00 Hgb 12.1 gm/dL (13.5-18.0) L 11/05/17 01:00 Hct 36.0 % (42.0-52.0) L 11/05/17 01:00 MCV 87.6 fl (78-100) 11/05/17 01:00 MCH 29.4 pg (27-31) 11/05/17 01:00 MCHC 33.6 g/dl (32-36) 11/05/17 01:00 RDW 14.1 % (11.5-14.0) H 11/05/17 01:00 Plt Count 184 K/mm3 (150-450) 11/05/17 01:00 MPV 9.7 fl (6.0-9.5) H 11/05/17 01:00 Immature Gran % (Auto) 0.40 % (0.001-0.429) 11/05/17 01:00 Immature Gran # (Auto) 0.04 K/mm3 (0.000-0.0310) H 11/05/17 01:00 Neutrophils % 83.5 % (42-75.0) H 11/05/17 01:00 Lymphocytes % 7.4 % (20-51) L 11/05/17 01:00 Monocytes % 7.9 % (0.0-9) 11/05/17 01:00 Eosinophils % 0.4 % (0.0-3.0) 11/05/17 01:00 Basophils % 0.4 % (0.0-1.0) 11/05/17 01:00 Nucleated RBC % 0.0 k/mm3 (0-1) 11/05/17 01:00 Neutrophils # 9.3 K/mm3 (1.3-6.0) H 11/05/17 01:00 Lymphocytes # 0.8 k/mm3 (1.5-3.5) L 11/05/17 01:00 Monocytes # 0.9 k/mm3 (0.0-1.0) 11/05/17 01:00 Eosinophils # 0.0 k/mm3 (0.0-0.7) 11/05/17 01:00 Absolute Basophils 0.1 k/mm3 (0.0-0.1) 11/05/17 01:00 D-Dimer 1.38 mg/L (0.19-0.49) H 11/05/17 03:13 Sodium 137 mmol/L (132-142) 11/05/17 01:00 Plasma Sodium 137 mmol/L (130-142) 11/05/17 01:00 Potassium 3.8 mmol/L (3.4-4.6) 11/05/17 01:00 Chloride 101 mmol/L (97-106) 11/05/17 01:00 Carbon Dioxide 26.8 mmol/L (24-32.6) 11/05/17 01:00 Anion Gap 13.0 mmol/L (6.8-13.8) 11/05/17 01:00 BUN 11 mg/dL (6-23) 11/05/17 01:00 Creatinine 1.03 mg/dL (0.4-1.4) 11/05/17 01:00 Est GFR (Non-Af Amer) 76 mL/min (60-130) 11/05/17 01:00 BUN/Creatinine Ratio 10.7 (9.0-21.6) 11/05/17 01:00 Random Glucose 125 mg/dL (70-110) H 11/05/17 01:00 Calcium 8.8 mg/dL (7.9-10.9) 11/05/17 01:00 Calcium Adj for Albumin 8.9 mg/dL (8.4-10.2) 11/05/17 01:00 Total Bilirubin 0.5 mg/dL (0.0-1.1) 11/05/17 01:00 AST 20 U/L (0-48) 11/05/17 01:00 ALT 22 U/L (19-67) 11/05/17 01:00 Alkaline Phosphatase 129 U/L (50-170) 11/05/17 01:00 Troponin I Less than 0.017 ng/ml (0.00-0.10) 11/05/17 01:00 B-Natriuretic Peptide 214 pg/mL (5-350) 11/05/17 01:00 Total Protein 6.9 gm/dL (6.2-8.2) 11/05/17 01:00 Albumin 3.5 gm/dl (3.4-5.0) 11/05/17 01:00 Urine Color Yellow 11/05/17 03:15 Urine Appearance Clear 11/05/17 03:15 Urine pH 6.0 pH (5.0-7.0) 11/05/17 03:15 Ur Specific [place] 1.025 SP.GR. (1.005-1.030) 11/05/17 03:15 Urine Protein 15 mg/dL (NEGATIVE) H 11/05/17 03:15 Urine Glucose (UA) Negative mg/dL (NEGATIVE) 11/05/17 03:15 Urine Ketones 5 mg/dL (NEGATIVE) 11/05/17 03:15 Urine Blood Negative /ul (NEGATIVE) 11/05/17 03:15 Urine Nitrate Negative (NEGATIVE) 11/05/17 03:15 Urine Bilirubin Negative mg/dl (NEGATIVE) 11/05/17 03:15 Prot Sulfosalicylic Acd Negative mg/dL (0) 11/05/17 03:15 Urine Urobilinogen Normal EU/dl (NORMAL) 11/05/17 03:15 Ur Leukocyte Esterase Negative /ul (NEGATIVE) 11/05/17 03:15 Urine RBC 0-5 /hpf (0-5) 11/05/17 03:15 Urine WBC 0-5 /hpf (0-5) 11/05/17 03:15 Ur Epithelial Cells 0-5 /hpf (0-5) 11/05/17 03:15 Urine Bacteria None seen (NONE) 11/05/17 03:15 Urine Culture Comments No culture indicated 11/05/17 03:15 Influenza Type A Ag Positive (NEGATIVE) H 11/05/17 01:23 Influenza Type B Ag Negative (NEGATIVE) 11/05/17 01:23 Assessment/Plan - Narrative Narrative: Tree is a 67 year old male admitted with influenza A and COPD exac. Influenza A - tamiflu ordered. - droplet precautions. - hydrate gently as oral intake has been poor since becoming ill. - watch I&Os closely. - daily weight. COPD exacerbation - start IV steroids and duoneb treatments - Rocephin / azithromycin ordered - encourage good pulmonary toileting - check labs in am. elevated D-Dimer - likely multi-factorial - check cta of chest as a precaution. Chronic medical conditions: - CAD, HTN, HLD, hypothyroid GI Proph: protonix VTE: Lovenox Code status: full code. - Assessment/Plan (1) COPD (chronic obstructive pulmonary disease) Problem: Acute Qualifiers: COPD type: COPD with acute exacerbation Qualified Code(s): J44.1 - Chronic obstructive pulmonary disease with (acute) exacerbation (2) Influenza A Problem: Acute (3) Coronary artery disease Problem: Chronic Qualifiers: Coronary Disease-Associated Artery/Lesion type: [place] artery [place] vs. transplanted heart: [place] heart Associated angina: without angina Qualified Code(s): I25.10 - Atherosclerotic heart disease of [place] coronary artery without angina pectoris (4) Hyperlipidemia Problem: Chronic Qualifiers: Hyperlipidemia type: unspecified Qualified Code(s): E78.5 - Hyperlipidemia , unspecified (5) Hypertension Problem: Chronic Qualifiers: Hypertension type: essential hypertension Qualified Code(s): I10 - Essential (primary) hypertension (6) Hypothyroidism Problem: Chronic Qualifiers: Hypothyroidism type: acquired Qualified Code(s): E03.9 - Hypothyroidism, unspecified
[2017-11-05] MEDS ORDERED: KETOROLAC TROMETHAMINE 30 MG/ML VIAL ONE (05:24)
[2017-11-05] MEDS ORDERED: AZITHROMYCIN 250 MG TABLET ONE (05:25)
[2017-11-05] MEDS: OSELTAMIVIR PHOSPHATE 75 MG CAPSULE PO SCH ×3 (05:33→21:28)
[2017-11-05] MEDS: NORMAL SALINE 1,000 ML IV PRN ×2 (05:42→17:22)
[2017-11-05] MEDS: METHYLPREDNISOLONE SOD SUCC 80 MG in WATER FOR INJ.,BACTERIOSTATIC 0 ML IV SCH ×4 (06:00→21:31)
[2017-11-05] MEDS: ALBUTEROL SULFATE/IPRATROPIUM 3 ML NEBU IH SCH ×4 (06:59→18:29)
[2017-11-05] MEDS ORDERED: ALBUTEROL SULFATE/IPRATROPIUM 3 ML NEBU IH PRN (07:00)
--- NOTE | 2017-11-05 08:03 | PN ---
Progess Note - Interim Narrative: 11/05/17 08:00 I saw and examined this patient on 11/05/2017. I agree with the narrative and plan of DEBBIE Candelaria. He was admitted for ACOPDE due to influenza A / Acute Bronchitis. We will continue with her his IV antibiotics, Duoneb RTC, IV solumedrol. Will also continue with Tamiflu. Continue with is home medications. His Tmax was 39.7.
[2017-11-05] MEDS: ENOXAPARIN SODIUM 40 MG/0.4 ML SYRG SC SCH (10:24)
[2017-11-05] MEDS: PANTOPRAZOLE SODIUM 40 MG TABLET.EC PO SCH (10:25)
[2017-11-05] MEDS ORDERED: traMADol HCL 50 MG TABLET PO PRN (17:23)
[2017-11-05] MEDS: ATORVASTATIN CALCIUM 40 MG TABLET PO SCH (21:25)
[2017-11-06] MEDS: NORMAL SALINE 1,000 ML IV PRN (03:44)
[2017-11-06] MEDS: AZITHROMYCIN 250 MG TABLET PO SCH ×2 (03:47→10:23)
[2017-11-06] MEDS: cefTRIAXone SODIUM 1,000 MG in DEXTROSE 5 % IN WATER 50 ML IV SCH ×2 (03:50)
[2017-11-06] MEDS: METHYLPREDNISOLONE SOD SUCC 80 MG in WATER FOR INJ.,BACTERIOSTATIC 0 ML IV SCH ×3 (03:55→22:28)
--- NOTE | 2017-11-06 05:20 | PN ---
Subjective - Date and Time Seen Date: 11/06/17 Time: 05:15 Subjective Narrative: feeling better, less short of breath. sitting up in bed. Objective - Review of Systems Generalized/Overall Review: Reports: No Symptoms Reported EENTM: Reports: No Symptoms Reported Respiratory: Reports: Cough, Shortness of Breath Cardiac: Reports: No Symptoms Reported Abdominal: Reports: No Symptoms Reported Genitourinary Symptoms: Reports: No Symptoms Reported Musculoskeletal Complaints: Reports: No Symptoms Reported Neurological: Reports: No Symptoms Reported Skin: Reports: No Symptoms Reported Endocrine: Reports: No Symptoms Reported Misc: All systems neg except as marked - Vitals Vitals: Last Vital Signs Temp 36.8 C 11/06/17 03:46 Pulse 88 11/06/17 03:46 Resp 18 11/06/17 03:46 BP 108/68 11/06/17 03:46 Pulse Ox 96 11/06/17 03:46 - Exam Constitutional: Present: Alert, Oriented x3, Cooperative, No distress ENT Exam: Present: hearing grossly normal Neck: Present: lymphadenopathy (R), lymphadenopathy (L) Breasts: Present: Exam deferred Respiratory: Present: no respiratory distress, rhonchi - mild, diffuse, wheezing - faint, scattered Cardiovascular/Chest: Present: regular rate, rhythm, no chest tenderness Abdomen: Present: soft, nontender, nondistended, obese /Rectal: Present: Exam deferred Extremity: Present: non-tender, normal inspection Skin Exam: Present: normal color, warm/dry, no cyanosis Assessment/Plan Plan Narrative: Tree is a 67 year old male admitted with influenza A and COPD exac. Influenza A - tamiflu ordered. - droplet precautions. - has better oral intake over the last 12-18 hours -saline lock iv. COPD exacerbation - IV steroids and duoneb treatments - start to wean IV steroids - Rocephin / azithromycin ordered - encourage good pulmonary toileting - am labs pending, lungs sounds much improved from admission elevated D-Dimer - likely multi-factorial - cta of chest negative for PE Chronic medical conditions: - CAD, HTN, HLD, hypothyroid GI Proph: protonix VTE: Lovenox Code status: full code - Problems/Diagnosis (1) COPD (chronic obstructive pulmonary disease) Problem: Acute Qualifiers: COPD type: COPD with acute exacerbation Qualified Code(s): J44.1 - Chronic obstructive pulmonary disease with (acute) exacerbation (2) Influenza A Problem: Acute (3) Coronary artery disease Problem: Chronic Qualifiers: Coronary Disease-Associated Artery/Lesion type: [place] artery [place] vs. transplanted heart: [place] heart Associated angina: without angina Qualified Code(s): I25.10 - Atherosclerotic heart disease of [place] coronary artery without angina pectoris (4) Hyperlipidemia Problem: Chronic Qualifiers: Hyperlipidemia type: unspecified Qualified Code(s): E78.5 - Hyperlipidemia , unspecified (5) Hypertension Problem: Chronic Qualifiers: Hypertension type: essential hypertension Qualified Code(s): I10 - Essential (primary) hypertension (6) Hypothyroidism Problem: Chronic Qualifiers: Hypothyroidism type: acquired Qualified Code(s): E03.9 - Hypothyroidism, unspecified
[2017-11-06 06:05] LABS: Hemoglobin 12.1 gm/dL (13.5-18.0); Mean Cell Volume 87.1 fl (78-100); Mean Corpuscular Hemoglobin 28.5 pg (27-31); Mean Corpuscular Hgb Conc 32.7 g/dl (32-36); Neutrophil # 15.2 K/mm3 (1.3-6.0); Neutrophil % 88.9 % (42-75.0); Platelet Count 192 K/mm3 (150-450); Red Blood Count 4.25 M/mm3 (4.7-6.0); Red Cell Distribution Width 14.2 % (11.5-14.0); White Blood Count 17.1 K/mm3 (4.0-10.5)
[2017-11-06 06:17] LABS: Anion Gap 10.8 mmol/L (6.8-13.8); BUN/Creatinine Ratio 16.7 (9.0-21.6); Calcium * 8.9 mg/dL (7.9-10.9); Carbon Dioxide 27.4 mmol/L (24-32.6); Estimated Creat Clear 78.7; Potassium 4.2 mmol/L (3.4-4.6)
[2017-11-06] MEDS: ALBUTEROL SULFATE/IPRATROPIUM 3 ML NEBU IH SCH ×4 (06:18→19:29)
[2017-11-06] MEDS: LEVOTHYROXINE SODIUM 100 MCG TABLET PO SCH (07:51)
[2017-11-06] MEDS: HYDROCHLOROTHIAZIDE 25 MG TABLET PO SCH (10:22)
[2017-11-06] MEDS: POTASSIUM CHLORIDE 20 MEQ TABLET.SA PO SCH (10:22)
[2017-11-06] MEDS: CALCIUM CARBONATE/VITAMIN D3 1 TAB TABLET PO SCH (10:22)
[2017-11-06] MEDS: buPROPion HCL 150 MG TABLET.SA PO SCH (10:23)
[2017-11-06] MEDS: CHOLECALCIFEROL 1,000 UNIT CAPSULE PO SCH (10:23)
[2017-11-06] MEDS: OSELTAMIVIR PHOSPHATE 75 MG CAPSULE PO SCH ×2 (10:23→22:28)
[2017-11-06] MEDS: MAGNESIUM OXIDE 400 MG TABLET PO SCH (10:23)
[2017-11-06] MEDS: PANTOPRAZOLE SODIUM 40 MG TABLET.EC PO SCH (10:23)
[2017-11-06] MEDS: CYANOCOBALAMIN 1,000 MCG TABLET PO SCH (10:24)
[2017-11-06] MEDS: ASCORBIC ACID 500 MG TABLET PO SCH (10:24)
[2017-11-06] MEDS: METOPROLOL SUCCINATE 25 MG TABLET.SA PO SCH (10:24)
[2017-11-06] MEDS: TRAVOPROST 25 DROP BTL OP SCH (10:25)
[2017-11-06] MEDS: ENOXAPARIN SODIUM 40 MG/0.4 ML SYRG SC SCH (10:25)
[2017-11-06] MEDS: MULTIVITAMIN/IRON/FOLIC ACID 1 TAB TABLET PO SCH (10:34)
[2017-11-06] MEDS: ATORVASTATIN CALCIUM 40 MG TABLET PO SCH (22:29)
[2017-11-07] MEDS: METHYLPREDNISOLONE SOD SUCC 80 MG in WATER FOR INJ.,BACTERIOSTATIC 0 ML IV SCH (04:39)
[2017-11-07] MEDS: cefTRIAXone SODIUM 1,000 MG in DEXTROSE 5 % IN WATER 50 ML IV SCH ×2 (04:47)
[2017-11-07] MEDS: ALBUTEROL SULFATE/IPRATROPIUM 3 ML NEBU IH SCH ×4 (06:01→18:44)
[2017-11-07] MEDS: LEVOTHYROXINE SODIUM 100 MCG TABLET PO SCH (06:45)
--- NOTE | 2017-11-07 07:13 | PN ---
Subjective - Date and Time Seen Date: 11/07/17 Time: 07:05 Subjective Narrative: Patient seen today sitting up in bed with reports of increased shortness of breath with exertion. pt stated he want the oxygen back on because just sitting makes him feel very short of breath he denies cough, fever and chills overnight. Objective - Review of Systems Generalized/Overall Review: Reports: No Symptoms Reported EENTM: Reports: No Symptoms Reported Respiratory: Reports: Shortness of Breath Cardiac: Reports: No Symptoms Reported Abdominal: Reports: No Symptoms Reported Genitourinary Symptoms: Reports: No Symptoms Reported Musculoskeletal Complaints: Reports: No Symptoms Reported Neurological: Reports: No Symptoms Reported Skin: Reports: No Symptoms Reported Endocrine: Reports: No Symptoms Reported - Vitals Vitals: Last Vital Signs Temp 36.5 C 11/07/17 06:57 Pulse 82 11/07/17 06:57 Resp 18 11/07/17 06:57 BP 114/73 11/07/17 06:57 Pulse Ox 98 11/07/17 06:57 - Exam Constitutional: Present: Alert, Oriented x3, Cooperative, Well developed, No distress, Morbidly obese ENT Exam: Present: hearing grossly normal Neck: Present: full range of motion Respiratory: Present: chest non-tender, decreased breath sounds, rhonchi, wheezing Cardiovascular/Chest: Present: normal peripheral pulses, regular rate, rhythm, no chest tenderness, no edema Abdomen: Present: Normal bowel sounds, soft /Rectal: Present: Exam deferred Extremity: Present: normal range of motion, non-tender, normal inspection Skin Exam: Present: normal color, warm/dry Neurologic: Present: oriented x 3 Eye contact: Present: good eye contact Thoughts: Present: normal thought pattern Assessment/Plan Plan Narrative: COPD exacerbation - IV steroids and duoneb treatments - taper dose of IV steroids - Continue with Rocephin / azithromycin ordered - encourage good pulmonary toileting -On adm WBC 11.2---->17.1 likely due to steroids use Influenza A positive - continue with tamiflu - droplet precautions. - encourage oral intake and use of I/S elevated D-Dimer 1.38 on adm - likely multi-factorial - cta of chest negative for PE Chronic medical conditions: - CAD, HTN, HLD, hypothyroid GI Proph: protonix VTE: Lovenox Code status: full code - Problems/Diagnosis (1) COPD (chronic obstructive pulmonary disease) Problem: Acute Qualifiers: COPD type: COPD with acute exacerbation Qualified Code(s): J44.1 - Chronic obstructive pulmonary disease with (acute) exacerbation (2) Influenza A Problem: Acute (3) Leukocytosis Problem: Acute (4) Coronary artery disease Problem: Chronic Qualifiers: Coronary Disease-Associated Artery/Lesion type: [place] artery [place] vs. transplanted heart: [place] heart Associated angina: without angina Qualified Code(s): I25.10 - Atherosclerotic heart disease of [place] coronary artery without angina pectoris (5) Hyperlipidemia Problem: Chronic Qualifiers: Hyperlipidemia type: unspecified Qualified Code(s): E78.5 - Hyperlipidemia , unspecified (6) Hypertension Problem: Chronic Qualifiers: Hypertension type: essential hypertension Qualified Code(s): I10 - Essential (primary) hypertension (7) Hypothyroidism Problem: Chronic Qualifiers: Hypothyroidism type: acquired Qualified Code(s): E03.9 - Hypothyroidism, unspecified
[2017-11-07] MEDS: MULTIVITAMIN/IRON/FOLIC ACID 1 TAB TABLET PO SCH (08:42)
[2017-11-07] MEDS: ENOXAPARIN SODIUM 40 MG/0.4 ML SYRG SC SCH (08:42)
[2017-11-07] MEDS: ASCORBIC ACID 500 MG TABLET PO SCH (08:42)
[2017-11-07] MEDS: CALCIUM CARBONATE/VITAMIN D3 1 TAB TABLET PO SCH (08:42)
[2017-11-07] MEDS: POTASSIUM CHLORIDE 20 MEQ TABLET.SA PO SCH (08:42)
[2017-11-07] MEDS: HYDROCHLOROTHIAZIDE 25 MG TABLET PO SCH (08:42)
[2017-11-07] MEDS: PANTOPRAZOLE SODIUM 40 MG TABLET.EC PO SCH (08:43)
[2017-11-07] MEDS: TRAVOPROST 25 DROP BTL OP SCH (08:43)
[2017-11-07] MEDS: METOPROLOL SUCCINATE 25 MG TABLET.SA PO SCH (08:43)
[2017-11-07] MEDS: OSELTAMIVIR PHOSPHATE 75 MG CAPSULE PO SCH ×2 (08:43→21:18)
[2017-11-07] MEDS: MAGNESIUM OXIDE 400 MG TABLET PO SCH (08:43)
[2017-11-07] MEDS: AZITHROMYCIN 250 MG TABLET PO SCH (08:44)
[2017-11-07] MEDS: buPROPion HCL 150 MG TABLET.SA PO SCH (08:44)
[2017-11-07] MEDS: CYANOCOBALAMIN 1,000 MCG TABLET PO SCH (08:44)
[2017-11-07] MEDS: CHOLECALCIFEROL 1,000 UNIT CAPSULE PO SCH (08:44)
[2017-11-07] MEDS: predniSONE 20 MG TABLET PO SCH (13:13)
[2017-11-07] MEDS: ATORVASTATIN CALCIUM 40 MG TABLET PO SCH (21:17)
[2017-11-08] MEDS: cefTRIAXone SODIUM 1,000 MG in DEXTROSE 5 % IN WATER 50 ML IV SCH ×2 (05:50)
[2017-11-08] MEDS: ALBUTEROL SULFATE/IPRATROPIUM 3 ML NEBU IH SCH ×4 (06:16→18:10)
[2017-11-08 06:24] LABS: Anion Gap 8.4 mmol/L (6.8-13.8); BUN/Creatinine Ratio 13.8 (9.0-21.6); Bilirubin, Total 0.4 mg/dL (0.0-1.1); Ca. Corrected For Albumin 9.6 mg/dL (8.4-10.2); Calcium * 9.1 mg/dL (7.9-10.9); Carbon Dioxide 32.3 mmol/L (24-32.6); Potassium 3.7 mmol/L (3.4-4.6); Total Protein 6.3 gm/dL (6.2-8.2)
[2017-11-08] MEDS: LEVOTHYROXINE SODIUM 100 MCG TABLET PO SCH (07:27)
[2017-11-08] MEDS: ASCORBIC ACID 500 MG TABLET PO SCH (09:13)
[2017-11-08] MEDS: MULTIVITAMIN/IRON/FOLIC ACID 1 TAB TABLET PO SCH (09:13)
[2017-11-08] MEDS: CALCIUM CARBONATE/VITAMIN D3 1 TAB TABLET PO SCH (09:13)
[2017-11-08] MEDS: buPROPion HCL 150 MG TABLET.SA PO SCH (09:13)
[2017-11-08] MEDS: MAGNESIUM OXIDE 400 MG TABLET PO SCH (09:13)
[2017-11-08] MEDS: OSELTAMIVIR PHOSPHATE 75 MG CAPSULE PO SCH ×2 (09:13→21:01)
[2017-11-08] MEDS: CYANOCOBALAMIN 1,000 MCG TABLET PO SCH (09:13)
[2017-11-08] MEDS: CHOLECALCIFEROL 1,000 UNIT CAPSULE PO SCH (09:13)
[2017-11-08] MEDS: POTASSIUM CHLORIDE 20 MEQ TABLET.SA PO SCH (09:13)
[2017-11-08] MEDS: HYDROCHLOROTHIAZIDE 25 MG TABLET PO SCH (09:13)
[2017-11-08] MEDS: METOPROLOL SUCCINATE 25 MG TABLET.SA PO SCH (09:14)
[2017-11-08] MEDS: AZITHROMYCIN 250 MG TABLET PO SCH (09:14)
[2017-11-08] MEDS: predniSONE 20 MG TABLET PO SCH (09:14)
[2017-11-08] MEDS: TRAVOPROST 25 DROP BTL OP SCH (09:16)
[2017-11-08] MEDS: PANTOPRAZOLE SODIUM 40 MG TABLET.EC PO SCH (09:18)
[2017-11-08] MEDS: ENOXAPARIN SODIUM 40 MG/0.4 ML SYRG SC SCH (09:19)
[2017-11-08] MEDS: BENZOCAINE/MENTHOL 16 EACH BOX MM PRN ×2 (15:55→21:00)
--- NOTE | 2017-11-08 19:58 | PN ---
Subjective - Date and Time Seen Date: 11/08/17 Time: 10:30 Subjective Narrative: Patient seen and examined at bedside. No acute issues overnight. Patient tolerating PO steroids. Patient continues to complain of SOB, wheezing and cough but admits that his symptoms are improving little by little each day. Objective - Review of Systems Generalized/Overall Review: Reports: Weakness, Fatigue. Denies: Fever EENTM: Reports: No Symptoms Reported Respiratory: Reports: Cough, Shortness of Breath, Wheezing Cardiac: Reports: No Symptoms Reported Abdominal: Reports: No Symptoms Reported Genitourinary Symptoms: Reports: No Symptoms Reported Musculoskeletal Complaints: Reports: No Symptoms Reported Neurological: Reports: No Symptoms Reported Skin: Reports: No Symptoms Reported Endocrine: Reports: No Symptoms Reported Misc: All systems neg except as marked - Vitals Vitals: Last Vital Signs Temp 36.9 C 11/08/17 18:42 Pulse 76 11/08/17 18:42 Resp 20 11/08/17 18:42 BP 109/69 11/08/17 18:42 Pulse Ox 94 11/08/17 18:42 - Abnormal Lab Findings Abnormal Lab Findings: Abnormal Lab Results 11/08/17 Range/Units 05:40 Albumin 3.0 L (3.4-5.0) gm/dl - Exam Constitutional: Present: Alert, Oriented x3, Cooperative, Well developed, No distress, Obese ENT Exam: Present: hearing grossly normal, moist mucous membranes Respiratory: Present: no respiratory distress, no accessory muscle use, other - Coarse breath sounds with diffuse rhonchi and diffuse expiratory wheezes present Cardiovascular/Chest: Present: regular rate, rhythm Abdomen: Present: soft, nontender, nondistended Extremity: Present: normal inspection Skin Exam: Present: normal color, warm/dry Neurologic: Present: alert, normal mood/affect, oriented x 3 Appearance: Present: appropriate appearance, appropriate insight, neat, no memory impairment Eye contact: Present: cooperative, good eye contact, normal speech Thoughts: Present: normal thought pattern, no apparent hallucination Assessment/Plan Plan Narrative: Continue current cares. Continue with aggressive pulmonary toilet. Continue antibiotics and steroids for AECOPD. Patient will complete his total 5 day course of Tamiflu prior to discharge. Patient will likely be ready for discharge home in the next 1-2 days. - Problems/Diagnosis (1) Acute exacerbation of chronic obstructive pulmonary disease (COPD) Problem: Acute (2) Influenza A Problem: Acute
[2017-11-08] MEDS: ATORVASTATIN CALCIUM 40 MG TABLET PO SCH (21:01)
[2017-11-09] MEDS: BENZOCAINE/MENTHOL 16 EACH BOX MM PRN ×4 (00:16→20:39)
[2017-11-09] MEDS: cefTRIAXone SODIUM 1,000 MG in DEXTROSE 5 % IN WATER 50 ML IV SCH ×2 (04:15)
[2017-11-09 05:46] LABS: Hematocrit 38.6 % (42.0-52.0); Hemoglobin 12.5 gm/dL (13.5-18.0); Mean Cell Volume 87.3 fl (78-100); Mean Corpuscular Hemoglobin 28.3 pg (27-31); Mean Corpuscular Hgb Conc 32.4 g/dl (32-36); Mean Platelet Volume 9.8 fl (6.0-9.5); Neutrophil # 5.7 K/mm3 (1.3-6.0); Platelet Count 217 K/mm3 (150-450); Red Blood Count 4.42 M/mm3 (4.7-6.0); Red Cell Distribution Width 14.1 % (11.5-14.0); White Blood Count 8.6 K/mm3 (4.0-10.5)
[2017-11-09 05:54] LABS: Anion Gap 9.9 mmol/L (6.8-13.8); BUN/Creatinine Ratio 13.8 (9.0-21.6); Carbon Dioxide 32.6 mmol/L (24-32.6); Estimated Creat Clear 70.3; Potassium 3.5 mmol/L (3.4-4.6)
[2017-11-09] MEDS: ALBUTEROL SULFATE/IPRATROPIUM 3 ML NEBU IH SCH ×4 (06:10→18:37)
[2017-11-09] MEDS: LEVOTHYROXINE SODIUM 100 MCG TABLET PO SCH (07:26)
[2017-11-09] MEDS: TRAVOPROST 25 DROP BTL OP SCH (09:18)
[2017-11-09] MEDS: buPROPion HCL 150 MG TABLET.SA PO SCH (09:18)
[2017-11-09] MEDS: predniSONE 20 MG TABLET PO SCH (09:18)
[2017-11-09] MEDS: METOPROLOL SUCCINATE 25 MG TABLET.SA PO SCH (09:19)
[2017-11-09] MEDS: POTASSIUM CHLORIDE 20 MEQ TABLET.SA PO SCH (09:19)
[2017-11-09] MEDS: CALCIUM CARBONATE/VITAMIN D3 1 TAB TABLET PO SCH (09:19)
[2017-11-09] MEDS: MAGNESIUM OXIDE 400 MG TABLET PO SCH (09:19)
[2017-11-09] MEDS: MULTIVITAMIN/IRON/FOLIC ACID 1 TAB TABLET PO SCH (09:19)
[2017-11-09] MEDS: CHOLECALCIFEROL 1,000 UNIT CAPSULE PO SCH (09:19)
[2017-11-09] MEDS: HYDROCHLOROTHIAZIDE 25 MG TABLET PO SCH (09:19)
[2017-11-09] MEDS: PANTOPRAZOLE SODIUM 40 MG TABLET.EC PO SCH (09:19)
[2017-11-09] MEDS: CYANOCOBALAMIN 1,000 MCG TABLET PO SCH (09:20)
[2017-11-09] MEDS: OSELTAMIVIR PHOSPHATE 75 MG CAPSULE PO SCH (09:20)
[2017-11-09] MEDS: ASCORBIC ACID 500 MG TABLET PO SCH (09:20)
[2017-11-09] MEDS: ENOXAPARIN SODIUM 40 MG/0.4 ML SYRG SC SCH (09:20)
[2017-11-09] MEDS: ATORVASTATIN CALCIUM 40 MG TABLET PO SCH (20:39)
[2017-11-10] MEDS: cefTRIAXone SODIUM 1,000 MG in DEXTROSE 5 % IN WATER 50 ML IV SCH ×2 (03:52)
[2017-11-10] MEDS: BENZOCAINE/MENTHOL 16 EACH BOX MM PRN (03:52)
[2017-11-10] MEDS: ALBUTEROL SULFATE/IPRATROPIUM 3 ML NEBU IH SCH (06:13)
[2017-11-10 06:23] VITALS: BP 122/79
[2017-11-10] MEDS: LEVOTHYROXINE SODIUM 100 MCG TABLET PO SCH (06:25)
--- NOTE | 2017-11-10 07:02 | PN ---
Subjective - Date and Time Seen Date: 11/09/17 Time: 06:57 Subjective Narrative: Patient was seen still having a cough, denies fever, chills and stated he was feeling a better. Objective - Review of Systems Generalized/Overall Review: Reports: No Symptoms Reported EENTM: Reports: No Symptoms Reported Respiratory: Reports: Cough Cardiac: Reports: No Symptoms Reported Abdominal: Reports: No Symptoms Reported Genitourinary Symptoms: Reports: No Symptoms Reported Musculoskeletal Complaints: Reports: No Symptoms Reported Neurological: Reports: No Symptoms Reported Skin: Reports: No Symptoms Reported Endocrine: Reports: No Symptoms Reported - Vitals Vitals: Last Vital Signs Selected Entries 11/09/17 06:40 Temperature 36.7 C Temperature Oral Source Pulse Rate 77 Respiratory 18 Rate Blood Pressure 140/75 O2 Sat by Pulse 96 Oximetry Oxygen Delivery Room Air Method - Exam Constitutional: Present: Alert, Oriented x3, Cooperative, Well developed, Morbidly obese ENT Exam: Present: hearing grossly normal Neck: Present: non-tender, full range of motion Respiratory: Present: chest non-tender, no accessory muscle use, decreased breath sounds, rhonchi Cardiovascular/Chest: Present: normal peripheral pulses, regular rate, rhythm, no chest tenderness Abdomen: Present: Normal bowel sounds, soft, nontender Extremity: Present: normal range of motion, non-tender, normal inspection Skin Exam: Present: normal color, warm/dry Neurologic: Present: oriented x 3 Appearance: Present: appropriate appearance Thoughts: Present: normal thought pattern, no apparent hallucination Assessment/Plan Plan Narrative: COPD exacerbation - IV steroids and duoneb treatments - predisone 40mg daily - Continue with Rocephin / azithromycin ordered - encourage good pulmonary toileting -On adm WBC 11.2---->17.1----> 8.6 normal limits Influenza A positive - D/C tamiflu - droplet precautions. - encourage oral intake and use of I/S elevated D-Dimer 1.38 on adm - likely multi-factorial - cta of chest negative for PE Chronic medical conditions: - CAD, HTN, HLD, hypothyroid GI Proph: protonix VTE: Lovenox Code status: full code - Problems/Diagnosis (1) COPD (chronic obstructive pulmonary disease) Problem: Acute Qualifiers: COPD type: COPD with acute exacerbation Qualified Code(s): J44.1 - Chronic obstructive pulmonary disease with (acute) exacerbation (2) Influenza A Problem: Acute (3) Leukocytosis Problem: Resolved (4) Coronary artery disease Problem: Chronic Qualifiers: Coronary Disease-Associated Artery/Lesion type: [place] artery [place] vs. transplanted heart: [place] heart Associated angina: without angina Qualified Code(s): I25.10 - Atherosclerotic heart disease of [place] coronary artery without angina pectoris (5) Hyperlipidemia Problem: Chronic Qualifiers: Hyperlipidemia type: unspecified Qualified Code(s): E78.5 - Hyperlipidemia , unspecified (6) Hypertension Problem: Chronic Qualifiers: Hypertension type: essential hypertension Qualified Code(s): I10 - Essential (primary) hypertension (7) Hypothyroidism Problem: Chronic Qualifiers: Hypothyroidism type: acquired Qualified Code(s): E03.9 - Hypothyroidism, unspecified
--- NOTE | 2017-11-10 07:57 | DS ---
(1) COPD (chronic obstructive pulmonary disease) Problem: Acute Qualifiers: COPD type: COPD with acute exacerbation Qualified Code(s): J44.1 - Chronic obstructive pulmonary disease with (acute) exacerbation (2) Influenza A Problem: Acute (3) Leukocytosis Problem: Resolved Description of Stay: ADMISSION DATE: 11/05/2017 DISCHARGE DATE: 11/10/2017 ADMISSION HPI by DEBBIE Diaz: Tree is a 67 year old male patient of Dr. 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 Patient states that he started to have fevers on Friday. Tonight, the patient became increasingly short of breath which prompted a visit to the ER. In the ER, wbc elevated at 11.2 with 83.5 neutrophils. cmp remarkable for elevated glucose at 125, troponin negative and ua positive for protein only. Patient also tested positive for influenza A. In the ER, the patient spiked a temp of 39.7 degrees, tachycardia continued with HR ranging from 102 to 115 and patient was tachypnic with RR around 28-32. A d-dimer was ordered and came back at 1.38. The patient is scheduled to have a CTA of the chest this am to rule out PE. Patient will need to be admitted for COPD exacerbation and influenza A. PROBLEM BASED HOSPITAL COURSE: AECOPD - Patient originally treated with IV steroids but secondary to side effects and potential side effects, the patient refused to take steroids. After further discussion, the patient was agreeable to oral steroids so he was treated with Prednisone 40mg PO daily X 5 days which he tolerated well while in the hospital. He was discharged home with 3 additional days (for a total of 5 days) of treatment. - Patient treated with IV Rocephin and azithromycin during his hospitalization and was transitioned to oral azithromycin at discharge. - Patient treated with aggressive pulmonary toilet and around the clock nebulized breathing treatments during his stay. Influenza A positive - Patient received a 5 day course of Tamiflu 75mg PO BID during his hospital stay Leukocytosis -Jump in WBC count after admission likely secondary to IV steroids the patient received on admission. WBC count normalized prior to discharge. Elevated D-Dimer -1.38 on admission -CTA non-diagnostic but without PE noted Chronic medical conditions: CAD, HTN, HLD, hypothyroid VTE: Lovenox Disposition: The patient was discharged home in stable condition and instructed to follow-up with his PCP within 1 week. FOLLOW-UP APPOINTMENTS: -PCP, Dr. Law, within 1 week NEW OR CHANGED MEDICATIONS: -Azithromycin 500mg PO daily X 5 days -Prednisone 40mg PO daily X 3 days DISCONTINUED MEDICATIONS: None RADIOLOGY REPORTS: PA and Lateral CXR on 11/05/2017: Chronic findings with no acute cardiopulmonary disease otherwise identified. CTA of the chest on 11/05/2017: Nondiagnostic study for pulmonary embolism. No PE identified but cannot be completely excluded. Emphysema. Bronchitis. Basilar atelectasis. PA and Lateral CXR on 10/28/2017: No new focal acute cardiopulmonary finding. Stable increased vascular and peripheral interstitial lung markings. Stable cardiomegaly. Procedures Performed: none Discharge Disposition: Home self care Discharge Location: Home Disposition: Home self-care Condition: Stable Discharge Activity: Activity as tolerated Discharge Diet: Resume usual diet Referrals: Abhinav Law MD [Primary Care Provider] - Problem Oriented Discharge Instructions to Patient/Family: Influenza, Adult, [id number] Additional Patient Instructions (free text): -Follow-up with PCP, Dr. Law, within 1 week 11/18 at 11:00 Prescriptions (Any new or edited meds): Azithromycin [Zithromax] 500 mg PO DAILY 5 Days #5 tab predniSONE [Prednisone] 40 mg PO DAILY 3 Days #6 tablet Complete Home Medications List: Complete Home Medication List: Albuterol Sulfate [Proair Hfa] 2 puff IH QID PRN 08/19/17 Ascorbic Acid [Vitamin C] 500 mg PO DAILY 08/19/17 Atorvastatin Calcium 80 mg PO HS 08/19/17 Bupropion HCl [Bupropion HCl Sr] 150 mg PO DAILY 08/19/17 Calcium Carbonate/Vitamin D3 [Calcium 500-Vit D3 400 Tablet] 1 each PO DAILY Cholecalciferol (Vitamin D3) [Vitamin D3] 1,000 unit PO DAILY 08/19/17 Cyanocobalamin [Vitamin B-12] 1,000 mcg PO DAILY 08/19/17 Glucocil 2 tab PO BIDWM 08/19/17 Glucosam/Ac-Col.cplx/D3/C/Mn [Uqazdjydapn-Xhuvnrbsrzs-Z6 Cap] 1 each PO DAILY 08/19/17 Hydrochlorothiazide [Hydrodiuril] 25 mg PO DAILY 08/19/17 Ipratropium/Albuterol Sulfate [Iprat-Albut 0.5-3(2.5) mg/3 ml] 3 ml IH BID 08/19 Levothyroxine Sodium [Synthroid] 100 mcg PO DAILY 08/19/17 Magnesium Oxide [Magnesium] 400 mg PO DAILY 08/19/17 Metoprolol Succinate [Toprol Xl] 25 mg PO DAILY 08/19/17 Multivitamin with Iron [Multivitamins with Iron] 1 each PO DAILY 08/19/17 Potassium Chloride [Klor-Con M20] 20 meq PO DAILY 08/19/17 Tiotropium [place] [Spiriva Respimat] 2 puff IH DAILY 08/19/17 Travoprost [Travatan Z] 2.5 ml OP DAILY 08/19/17 traMADol HCL [Tramadol HCl] 50 mg PO Q6H PRN 08/19/17 Acetaminophen [Tylenol] 325 mg PO QID PRN 11/07/17 Azithromycin [Zithromax] 500 mg PO DAILY 5 Days #5 tab 11/10/17 predniSONE [Prednisone] 40 mg PO DAILY 3 Days #6 tablet 11/10/17
[2017-11-10] MEDS: ASCORBIC ACID 500 MG TABLET PO SCH (08:35)
[2017-11-10] MEDS: MULTIVITAMIN/IRON/FOLIC ACID 1 TAB TABLET PO SCH (08:35)
[2017-11-10] MEDS: buPROPion HCL 150 MG TABLET.SA PO SCH (08:35)
[2017-11-10] MEDS: MAGNESIUM OXIDE 400 MG TABLET PO SCH (08:35)
[2017-11-10] MEDS: CALCIUM CARBONATE/VITAMIN D3 1 TAB TABLET PO SCH (08:35)
[2017-11-10] MEDS: POTASSIUM CHLORIDE 20 MEQ TABLET.SA PO SCH (08:35)
[2017-11-10] MEDS: PANTOPRAZOLE SODIUM 40 MG TABLET.EC PO SCH (08:35)
[2017-11-10] MEDS: CYANOCOBALAMIN 1,000 MCG TABLET PO SCH (08:36)
[2017-11-10] MEDS: HYDROCHLOROTHIAZIDE 25 MG TABLET PO SCH (08:36)
[2017-11-10] MEDS: predniSONE 20 MG TABLET PO SCH (08:36)
[2017-11-10] MEDS: CHOLECALCIFEROL 1,000 UNIT CAPSULE PO SCH (08:36)
[2017-11-10] MEDS: METOPROLOL SUCCINATE 25 MG TABLET.SA PO SCH (08:36)
[2017-11-10] MEDS: TRAVOPROST 25 DROP BTL OP SCH (08:36)
[2017-11-10] MEDS: ENOXAPARIN SODIUM 40 MG/0.4 ML SYRG SC SCH (08:40)
== END 2017-11-10 09:43 | disposition home or self-care (01) | DRG 192 ==
LOC: ER 00:32 → MS 03:04
PROVIDERS: ADMIT Nurse Practitioner Critical Care Medicine; ATTEND Internal Medicine
DX: J44.1 Chronic obstructive pulmonary disease with (acute) exacerbation (principal); J11.1 Influenza due to unidentified influenza virus with other respiratory manifestations; D72.829 Elevated white blood cell count, unspecified; E11.9 Type 2 diabetes mellitus without complications; I10 Essential (primary) hypertension; E78.5 Hyperlipidemia, unspecified; E03.9 Hypothyroidism, unspecified; I25.10 Atherosclerotic heart disease of native coronary artery without angina pectoris; Z87.891 Personal history of nicotine dependence; Z95.5 Presence of coronary angioplasty implant and graft; Z95.0 Presence of cardiac pacemaker

== ENCOUNTER 2021-01-24 10:12 | Inpatient (IN) ==
[2021-01-24 11:32] LABS: Hematocrit 38.3 % (42.0-52.0); Hemoglobin 11.9 gm/dL (13.5-18.0); Mean Cell Volume 94.1 fl (78-100); Mean Corpuscular Hemoglobin 29.2 pg (27-31); Mean Corpuscular Hgb Conc 31.1 g/dl (32-36); Mean Platelet Volume 8.9 fl (8-11.3); Neutrophil # 6.5 K/mm3 (1.3-6.0); Neutrophil % 75.7 % (42-75.0); Platelet Count 242 K/mm3 (150-450); Red Blood Count 4.07 M/mm3 (4.7-6.0); Red Cell Distribution Width 15.6 % (11.5-14.0); White Blood Count 8.6 K/mm3 (4.0-10.5)
[2021-01-24 11:43] LABS: Hemoglobin A1C 6.4 % (3.80-5.60)
[2021-01-24 11:44] LABS: Albumin * 3.3 gm/dl (3.4-5.0); Anion Gap 9.3 mmol/L (6.8-13.8); Bilirubin, Total 0.4 mg/dL (0.0-1.1); CRP 1.6 mg/dL (0.0-0.9); Calcium * 8.8 mg/dL (7.9-10.9); Carbon Dioxide 30.2 mmol/L (24-32.6); Potassium 3.5 mmol/L (3.4-4.6); Total Protein 6.7 gm/dL (6.2-8.2)
[2021-01-24 11:50] LABS: Urine Bilirubin Negative (NEGATIVE); Urine Blood Negative /ul (NEGATIVE); Urine Ketone Negative (NEGATIVE); Urine Nitrite Negative (NEGATIVE); Urine Protein Negative (NEGATIVE); Urine Specific Gravity 1.025 SP.GR. (1.005-1.030); Urine Urobilinogen Normal (NORMAL)
[2021-01-24] MEDS: ENOXAPARIN SODIUM 40 MG/0.4 ML SYRG SC SCH (12:03)
[2021-01-24 12:05] LABS: Urine Appearance Clear (CLEAR); Urine Bacteria None Seen; Urine Color Yellow; Urine RBC None Seen /hpf (0-5); Urine WBC None Seen /hpf (0-5)
[2021-01-24] MEDS ORDERED: ALBUTEROL SULFATE 2.5 MG/0.5 ML VIAL.NEB IH PRN (12:34)
[2021-01-24] MEDS ORDERED: traMADol HCL 50 MG TABLET PO PRN (12:34)
[2021-01-24] MEDS: VANCOMYCIN/WATER FOR INJ (PEG) 1.5 GM/300 ML BAG IV SCH (12:39)
[2021-01-24] MEDS ORDERED: BRIMONIDINE TARTRATE 50 DROP BTL OP SCH (12:45)
[2021-01-24] MEDS ORDERED: ALBUTEROL SULFATE 2.5 MG/3 ML inhalation SCH (12:45)
[2021-01-24] MEDS ORDERED: FUROSEMIDE 10 MG/ML VIAL IV ONE (14:30)
[2021-01-24] MEDS ORDERED: FUROSEMIDE 10 MG/ML VIAL ONE (15:50)
--- NOTE | 2021-01-24 15:54 | PN ---
Rebeca Note - Interim Date: 01/24/21 Time: 15:50 Narrative: 01/24/21 15:50 Patient was seen and rexamined on the floor on 01/24/2021. Labs were reviewed. Admitting diagnoses is still Cellulitis, B/L, Psoriais palmoplantar with acral ulcers. Will continue with IV antibiotics. Elevate legs and will give him IV lasix x 1 today. My clinic visit notes will serve as my H & P for this admission.
[2021-01-24] MEDS: BUDESONIDE PO SCH ×2 (16:12→20:06)
[2021-01-24] MEDS: FORMOTEROL FUMARATE PO SCH ×2 (16:12→20:06)
[2021-01-24] MEDS: ROSUVASTATIN CALCIUM 20 MG TABLET PO SCH (20:13)
[2021-01-24] MEDS: TRAVOPROST 25 DROP BTL OP SCH (20:14)
[2021-01-24] MEDS: BRIMONIDINE TARTRATE 50 DROP BTL OP SCH (20:15)
[2021-01-24] MEDS: CLOTRIMAZOLE/BETAMET DIPROP 15 APPL TUBE TP SCH (20:16)
[2021-01-24] MEDS: FLUOCINONIDE 15 APPL TUBE TP SCH (20:16)
[2021-01-24] MEDS ORDERED: buPROPion HCL 150 MG TABLET.SA PO SCH (21:00)
[2021-01-24] MEDS ORDERED: FERROUS SULFATE 325 MG TABLET PO SCH (21:00)
[2021-01-24] MEDS ORDERED: TRAVOPROST 25 DROP BTL OP SCH (21:00)
[2021-01-25] MEDS: VANCOMYCIN/WATER FOR INJ (PEG) 1.5 GM/300 ML BAG IV SCH (00:01)
[2021-01-25 06:40] LABS: Anion Gap 11.4 mmol/L (6.8-13.8); BUN/Creatinine Ratio 9.4 (9.0-21.6); Calcium * 8.9 mg/dL (7.9-10.9); Carbon Dioxide 31.5 mmol/L (24-32.6); Estimated Creat Clear 59.8; Potassium 3.9 mmol/L (3.4-4.6)
[2021-01-25] MEDS: TIOTROPIUM PO SCH ×2 (07:13→08:01)
[2021-01-25] MEDS: LEVOTHYROXINE SODIUM 125 MCG TABLET PO SCH (07:13)
[2021-01-25] MEDS: FERROUS SULFATE 325 MG TABLET PO SCH ×2 (08:00→17:34)
[2021-01-25] MEDS: FOLIC ACID 1 MG TABLET PO SCH (08:00)
[2021-01-25] MEDS: POTASSIUM CHLORIDE 20 MEQ TABLET.SA PO SCH (08:01)
[2021-01-25] MEDS: METOPROLOL SUCCINATE 25 MG TABLET.SA PO SCH (08:01)
[2021-01-25] MEDS: CALCIUM CARBONATE 500 MG TAB.CHEW PO SCH (08:02)
[2021-01-25] MEDS: CHOLECALCIFEROL 1,000 UNIT CAPSULE PO SCH (08:02)
[2021-01-25] MEDS: CYANOCOBALAMIN 1,000 MCG TABLET PO SCH (08:02)
[2021-01-25] MEDS: ASCORBIC ACID 500 MG TABLET PO SCH (08:02)
[2021-01-25] MEDS: buPROPion HCL 150 MG TABLET.SA PO SCH ×2 (08:02→17:34)
[2021-01-25] MEDS: CLOBETASOL TP SCH (08:09)
[2021-01-25] MEDS: CALCIPOTRIENE TP SCH (08:09)
--- NOTE | 2021-01-25 08:16 | PN ---
Subjective - Date and Time Seen Date: 01/25/21 Time: 08:10 Subjective Narrative: Still with skin pain from his edema but better, Tmax 37.2 C. Objective - Review of Systems Generalized/Overall Review: Denies: Weakness, Chills, Fever EENTM: Denies: Blurred Vision, Double Vision Respiratory: Denies: Cough, Shortness of Breath, Orthopnea Cardiac: Reports: Edema. Denies: Chest Pain, Palpitations Abdominal: Denies: Nausea, Vomiting, Abdominal Pain Genitourinary Symptoms: Denies: Urgency, Frequency Musculoskeletal Complaints: Reports: Joint Swelling, Muscle Pain Neurological: Denies: Headache Skin: Reports: Lesions, Change in Color Misc: All systems neg except as marked - Vitals Vitals: Last Vital Signs Temp 36.9 C 01/25/21 07:15 Pulse 66 01/25/21 08:01 Resp 16 01/25/21 07:15 BP 123/76 01/25/21 08:01 Pulse Ox 97 01/25/21 07:15 - Abnormal Lab Findings Abnormal Lab Findings: Abnormal Lab Results 01/24/21 01/24/21 01/24/21 Range/Units 11:20 11:20 11:20 RBC 4.07 L (4.7-6.0) M/mm3 Hgb 11.9 L (13.5-18.0) gm/dL Hct 38.3 L (42.0-52.0) % MCHC 31.1 L (32-36) g/dl RDW 15.6 H (11.5-14.0) % Immature Gran % (Auto) 1.40 H (0.001-0.429) % Immature Gran # (Auto) 0.12 H (0.000-0.0310) K/mm3 Neutrophils % 75.7 H (42-75.0) % Lymphocytes % 13.9 L (20-51) % Neutrophils # 6.5 H (1.3-6.0) K/mm3 Lymphocytes # 1.20 L (1.5-3.5) k/mm3 ESR 23 H (0-10) mm/hr Random Glucose 114 H (70-110) mg/dL Hemoglobin A1c (3.80-5.60) % C-Reactive Prot, Quant 1.6 H (0.0-0.9) mg/dL Albumin 3.3 L (3.4-5.0) gm/dl 01/24/21 01/25/21 Range/Units 11:20 06:30 RBC (4.7-6.0) M/mm3 Hgb (13.5-18.0) gm/dL Hct (42.0-52.0) % MCHC (32-36) g/dl RDW (11.5-14.0) % Immature Gran % (Auto) (0.001-0.429) % Immature Gran # (Auto) (0.000-0.0310) K/mm3 Neutrophils % (42-75.0) % Lymphocytes % (20-51) % Neutrophils # (1.3-6.0) K/mm3 Lymphocytes # (1.5-3.5) k/mm3 ESR (0-10) mm/hr Random Glucose 125 H (70-110) mg/dL Hemoglobin A1c 6.4 H (3.80-5.60) % C-Reactive Prot, Quant (0.0-0.9) mg/dL Albumin (3.4-5.0) gm/dl - Exam Constitutional: Present: Alert, Oriented x3, Cooperative ENT Exam: Present: hearing grossly normal Neck: Present: supple. Absent: limited range of motion, lymphadenopathy (R) Respiratory: Present: lungs clear, No rales, No wheezing Cardiovascular/Chest: Present: regular rate, rhythm, no JVD, no murmur Abdomen: Present: Normal bowel sounds, soft, nontender, obese Extremity: Present: no calf tenderness, lower extremity edema Skin Exam: Present: warm/dry, other - erythema Assessment/Plan Plan Narrative: Erika was admitted yesterday for bilateral cellulitis, right worse than left, with palmoplantar psoriasis with acral pustules, having failed outpatient treatment with oral antibiotics. He is afebrile. He diuresed well with IV Lasix yesterday. We will discontinue his hydrochlorothiazide and start him on Bumex orally. We will continue with patient's IV antibiotics. 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
[2021-01-25] MEDS ORDERED: ASPIRIN 325 MG TABLET.DR PO SCH (09:00)
[2021-01-25] MEDS ORDERED: TIOTROPIUM BROMIDE 5 CAP INHALER IH SCH (09:00)
[2021-01-25] MEDS ORDERED: ASPIRIN 81 MG TABLET.DR PO SCH (09:00)
[2021-01-25] MEDS ORDERED: MAGNESIUM OXIDE 400 MG PO SCH (09:00)
[2021-01-25] MEDS ORDERED: HYDROCHLOROTHIAZIDE 25 MG TABLET PO SCH (09:00)
[2021-01-25] MEDS: MAGNESIUM OXIDE 400 MG TABLET PO SCH (09:00)
[2021-01-25] MEDS: ASPIRIN 81 MG TABLET.DR PO SCH (09:01)
[2021-01-25] MEDS: BUMETANIDE 1 MG TABLET PO SCH (09:01)
[2021-01-25] MEDS: PSYLLIUM SEED 1 PACKET PACKET PO SCH (09:13)
[2021-01-25] MEDS: FORMOTEROL FUMARATE PO SCH ×3 (10:15→21:04)
[2021-01-25] MEDS: BUDESONIDE PO SCH ×3 (10:15→21:04)
[2021-01-25] MEDS: BRIMONIDINE TARTRATE 50 DROP BTL OP SCH ×3 (10:15→21:03)
[2021-01-25] MEDS: ENOXAPARIN SODIUM 40 MG/0.4 ML SYRG SC SCH (12:37)
[2021-01-25] MEDS: VANCOMYCIN IV SCH (12:40)
[2021-01-25] MEDS: WATER FOR INJ IV SCH (12:40)
[2021-01-25] MEDS: CLOTRIMAZOLE/BETAMET DIPROP 15 APPL TUBE TP SCH ×2 (14:45→21:09)
[2021-01-25] MEDS: ROSUVASTATIN CALCIUM 20 MG TABLET PO SCH (21:04)
[2021-01-25] MEDS: TRAVOPROST 25 DROP BTL OP SCH (21:06)
[2021-01-25] MEDS: FLUOCINONIDE 15 APPL TUBE TP SCH (21:06)
[2021-01-26] MEDS: WATER FOR INJ IV SCH ×2 (00:04→11:58)
[2021-01-26] MEDS: VANCOMYCIN IV SCH ×2 (00:04→11:58)
[2021-01-26] MEDS: TIOTROPIUM PO SCH ×2 (05:10→08:42)
[2021-01-26] MEDS: LEVOTHYROXINE SODIUM 125 MCG TABLET PO SCH (06:26)
[2021-01-26 06:43] LABS: Hematocrit 38.5 % (42.0-52.0); Hemoglobin 11.8 gm/dL (13.5-18.0); Mean Cell Volume 95.3 fl (78-100); Mean Corpuscular Hemoglobin 29.2 pg (27-31); Mean Corpuscular Hgb Conc 30.6 g/dl (32-36); Neutrophil # 5.7 K/mm3 (1.3-6.0); Neutrophil % 68.4 % (42-75.0); Platelet Count 259 K/mm3 (150-450); Red Blood Count 4.04 M/mm3 (4.7-6.0); Red Cell Distribution Width 15.9 % (11.5-14.0); White Blood Count 8.3 K/mm3 (4.0-10.5)
[2021-01-26 06:54] LABS: Anion Gap 10.1 mmol/L (6.8-13.8); BUN/Creatinine Ratio 8.9 (9.0-21.6); Calcium * 9.1 mg/dL (7.9-10.9); Estimated Creat Clear 62.7; Potassium 4.1 mmol/L (3.4-4.6)
[2021-01-26] MEDS: CHOLECALCIFEROL 1,000 UNIT CAPSULE PO SCH (08:32)
[2021-01-26] MEDS: METOPROLOL SUCCINATE 25 MG TABLET.SA PO SCH (08:32)
[2021-01-26] MEDS: ASPIRIN 81 MG TABLET.DR PO SCH (08:32)
[2021-01-26] MEDS: ASCORBIC ACID 500 MG TABLET PO SCH (08:32)
[2021-01-26] MEDS: buPROPion HCL 150 MG TABLET.SA PO SCH ×2 (08:32→17:04)
[2021-01-26] MEDS: FOLIC ACID 1 MG TABLET PO SCH (08:33)
[2021-01-26] MEDS: BUMETANIDE 1 MG TABLET PO SCH (08:33)
[2021-01-26] MEDS: POTASSIUM CHLORIDE 20 MEQ TABLET.SA PO SCH (08:34)
[2021-01-26] MEDS: MAGNESIUM OXIDE 400 MG TABLET PO SCH (08:34)
[2021-01-26] MEDS: CALCIUM CARBONATE 500 MG TAB.CHEW PO SCH (08:34)
[2021-01-26] MEDS: CYANOCOBALAMIN 1,000 MCG TABLET PO SCH (08:34)
[2021-01-26] MEDS: FORMOTEROL FUMARATE PO SCH ×3 (08:35→20:06)
[2021-01-26] MEDS: BUDESONIDE PO SCH ×3 (08:35→20:06)
[2021-01-26] MEDS: BRIMONIDINE TARTRATE 50 DROP BTL OP SCH ×3 (08:36→20:06)
[2021-01-26] MEDS: CLOTRIMAZOLE/BETAMET DIPROP 15 APPL TUBE TP SCH ×2 (08:36→20:06)
[2021-01-26] MEDS: CLOBETASOL TP SCH (08:37)
[2021-01-26] MEDS: CALCIPOTRIENE TP SCH (08:37)
[2021-01-26] MEDS: PSYLLIUM SEED 1 PACKET PACKET PO SCH (08:38)
--- NOTE | 2021-01-26 08:53 | PN ---
Subjective - Date and Time Seen Date: 01/26/21 Time: 08:35 Subjective Narrative: Day # 3 of IV antibiotics. swelling , eyrhema better. skin back tender to touch. Objective - Review of Systems Generalized/Overall Review: Denies: Chills, Fever EENTM: Denies: Blurred Vision Respiratory: Reports: Shortness of Breath. Denies: Cough, Orthopnea, Wheezing Cardiac: Reports: Edema. Denies: Chest Pain, Palpitations Abdominal: Denies: Nausea, Vomiting, Abdominal Pain Genitourinary Symptoms: Denies: Urgency, Frequency Musculoskeletal Complaints: Reports: Joint Pain Neurological: Denies: Headache Skin: Reports: Lesions, Change in Color Endocrine: Denies: Intolerance to Cold, Intolerance to Heat Misc: All systems neg except as marked - Vitals Vitals: Last Vital Signs Temp 36.7 C 01/26/21 06:20 Pulse 70 01/26/21 06:20 Resp 18 01/26/21 06:20 BP 125/73 01/26/21 06:20 Pulse Ox 97 01/26/21 06:20 - Abnormal Lab Findings Abnormal Lab Findings: Abnormal Lab Results 01/26/21 01/26/21 Range/Units 06:35 06:35 RBC 4.04 L (4.7-6.0) M/mm3 Hgb 11.8 L (13.5-18.0) gm/dL Hct 38.5 L (42.0-52.0) % MCHC 30.6 L (32-36) g/dl RDW 15.9 H (11.5-14.0) % Immature Gran % (Auto) 1.30 H (0.001-0.429) % Immature Gran # (Auto) 0.11 H (0.000-0.0310) K/mm3 Lymphocytes % 19.0 L (20-51) % BUN/Creatinine Ratio 8.9 L (9.0-21.6) - Exam Constitutional: Present: Alert, Oriented x3, Cooperative ENT Exam: Present: hearing grossly normal Neck: Present: supple. Absent: lymphadenopathy (R), lymphadenopathy (L) Respiratory: Present: decreased breath sounds, No rales, No wheezing Cardiovascular/Chest: Present: regular rate, rhythm, no JVD, systolic murmur Abdomen: Present: Normal bowel sounds, soft, nontender, obese Extremity: Present: lower extremity edema, other. Absent: calf tenderness Skin Exam: Present: warm/dry, other - erythematous Assessment/Plan Plan Narrative: Tree was admitted for bilateral cellulitis with plantar pustular psoriasis having failed outpatient treatment with oral antibiotics. He is on his day 3 of IV antibioticsIV Rocephin and vancomycin to cover for MRSA. We also gave him IV Lasix and then transitioned him to oral Bumex from his hydrochlorothiazide. He has been negative on his fluid balance for the last 2 days. His swelling and erythema is slightly improved. He also noticed that he has been more short of breath with exertion. His last echocardiogram was in 2014 which showed moderate MR and RVSP 32 mm Hg. He is on Symbicort/Spiriva/nebulizers and inhalers for his COPD. We will add a low-dose NORM inhibitor to his beta-chaparrita and diuretic. We will put him on a low-salt diet in addition to his consistent carb diet . He will need a follow-up echocardiogram to see the progression of valvular regurgitation and pulmonary pressures as an outpatient which likely is the cause of his edema on top of his cellulitis. We will also do a CTS of his chest for questionable nodular pleralthickening, RMLLF. We will continue his IV antibiotics over the weekend and will likely change him to oral antibiotics on Friday and discharge him. He was continued on MTX and clotimazole-bethamesone topical cream for his plantar psoriasis with acral pustules since admission. - Problems/Diagnosis (1) Cellulitis Problem: Acute Qualifiers: Site of cellulitis: extremity Site of cellulitis of extremity: lower extremity Laterality: unspecified laterality Qualified Code(s): L03.119 - Cellulitis of unspecified part of limb (2) Psoriasis with pustules Problem: Acute (3) CAD (coronary artery disease) Problem: Chronic Qualifiers: (4) COPD (chronic obstructive pulmonary disease) Problem: Chronic Qualifiers: (5) Hyperlipidemia Problem: Chronic Qualifiers: (6) Hypertension Problem: Chronic Qualifiers: Hypertension type: essential hypertension Qualified Code(s): I10 - Essential (primary) hypertension (7) Diabetes mellitus Problem: Chronic Qualifiers: Diabetes mellitus type: type 2 Diabetes mellitus tank terminal gauger insulin use: without usp use Diabetes mellitus complication status: without complication Qualified Code(s): E11.9 - Type 2 diabetes mellitus without complications
[2021-01-26] MEDS: FERROUS SULFATE 325 MG TABLET PO SCH ×3 (10:39→17:04)
[2021-01-26] MEDS: LISINOPRIL 5 MG TABLET PO SCH (11:22)
[2021-01-26] MEDS: ENOXAPARIN SODIUM 40 MG/0.4 ML SYRG SC SCH (11:23)
[2021-01-26] MEDS: TRAVOPROST 25 DROP BTL OP SCH (20:09)
[2021-01-26] MEDS: FLUOCINONIDE 15 APPL TUBE TP SCH (20:10)
[2021-01-26] MEDS: ROSUVASTATIN CALCIUM 20 MG TABLET PO SCH (20:11)
[2021-01-27] MEDS: WATER FOR INJ IV SCH ×3 (00:41→23:56)
[2021-01-27] MEDS: VANCOMYCIN IV SCH ×3 (00:41→23:56)
[2021-01-27] MEDS: LEVOTHYROXINE SODIUM 125 MCG TABLET PO SCH (07:13)
[2021-01-27] MEDS: POTASSIUM CHLORIDE 20 MEQ TABLET.SA PO SCH (08:01)
[2021-01-27] MEDS: METOPROLOL SUCCINATE 25 MG TABLET.SA PO SCH (08:01)
[2021-01-27] MEDS: ASCORBIC ACID 500 MG TABLET PO SCH (08:02)
[2021-01-27] MEDS: CYANOCOBALAMIN 1,000 MCG TABLET PO SCH (08:02)
[2021-01-27] MEDS: PSYLLIUM SEED 1 PACKET PACKET PO SCH (08:02)
[2021-01-27] MEDS: buPROPion HCL 150 MG TABLET.SA PO SCH ×2 (08:02→17:35)
[2021-01-27] MEDS: FOLIC ACID 1 MG TABLET PO SCH (08:02)
[2021-01-27] MEDS: MAGNESIUM OXIDE 400 MG TABLET PO SCH (08:03)
[2021-01-27] MEDS: CLOTRIMAZOLE/BETAMET DIPROP 15 APPL TUBE TP SCH ×2 (08:03→21:09)
[2021-01-27] MEDS: ASPIRIN 81 MG TABLET.DR PO SCH (08:03)
[2021-01-27] MEDS: CALCIUM CARBONATE 500 MG TAB.CHEW PO SCH (08:03)
[2021-01-27] MEDS: CALCIPOTRIENE TP SCH (08:03)
[2021-01-27] MEDS: FERROUS SULFATE 325 MG TABLET PO SCH ×2 (08:03→17:35)
[2021-01-27] MEDS: CLOBETASOL TP SCH (08:03)
[2021-01-27] MEDS: CHOLECALCIFEROL 1,000 UNIT CAPSULE PO SCH (08:03)
[2021-01-27] MEDS: BUMETANIDE 1 MG TABLET PO SCH (08:03)
[2021-01-27] MEDS: FORMOTEROL FUMARATE PO SCH ×2 (08:04→21:05)
[2021-01-27] MEDS: BRIMONIDINE TARTRATE 50 DROP BTL OP SCH ×3 (08:04→21:06)
[2021-01-27] MEDS: BUDESONIDE PO SCH ×2 (08:04→21:05)
[2021-01-27] MEDS: TIOTROPIUM PO SCH (08:05)
[2021-01-27] MEDS: LISINOPRIL 5 MG TABLET PO SCH (08:05)
[2021-01-27] MEDS ORDERED: VANCOMYCIN HCL LEVEL XX ONE (11:30)
[2021-01-27] MEDS: ENOXAPARIN SODIUM 40 MG/0.4 ML SYRG SC SCH (11:41)
[2021-01-27 11:43] LABS: Anion Gap 8.5 mmol/L (6.8-13.8); BUN/Creatinine Ratio 11.7 (9.0-21.6); Calcium * 9.4 mg/dL (7.9-10.9); Estimated Creat Clear 57.1; Potassium 4.5 mmol/L (3.4-4.6); Vancomycin Trough 17.8 mcg/mL (10.0-20.0)
--- NOTE | 2021-01-27 12:00 | PN ---
Subjective - Date and Time Seen Date: 01/27/21 Time: 11:54 Subjective Narrative: I have less redness but still have pain in my legs Objective Objective Narrative: 70-year-old male admitted for bilateral lower extremity cellulitis as well as psoriatic pustules of his plantar surfaces was evaluated bedside this morning was found to be afebrile and in no acute distress. Patient reports significant improvement in his erythema but still reports pain that is worse with ambulation due to the swelling and pustules on his lower extremities. He is currently on dual IV antibiotics that were started by the attending gala corrigan, he is tolerating the medication without any issues. Labs done yesterday morning revealed absence of leukocytosis or ongoing systemic infection and there were no abnormalities noted on the CMP. Clinically the patient remained stable and denies any new symptoms. During today's rounds he was noted to have existing pedal edema which is actually an improvement from admission. We will continue the current treatment and reevaluate in the morning. - Review of Systems Generalized/Overall Review: Reports: No Symptoms Reported EENTM: Reports: No Symptoms Reported Respiratory: Reports: Shortness of Breath - Chronic shortness of breath on exertion Cardiac: Reports: No Symptoms Reported Abdominal: Reports: No Symptoms Reported Genitourinary Symptoms: Reports: No Symptoms Reported Musculoskeletal Complaints: Reports: No Symptoms Reported Neurological: Reports: No Symptoms Reported Skin: Reports: Change in Color, Other - Erythema tenderness and warmth in lower extremities with plantar pustules. Endocrine: Reports: No Symptoms Reported - Vitals Vitals: Last Vital Signs Temp 37.0 C 01/27/21 10:51 Pulse 77 01/27/21 10:51 Resp 14 01/27/21 10:51 BP 114/64 01/27/21 10:51 Pulse Ox 95 01/27/21 10:51 - Abnormal Lab Findings Abnormal Lab Findings: Abnormal Lab Results 01/27/21 Range/Units 11:09 Random Glucose 117 H (70-110) mg/dL - Exam Constitutional: Present: Alert, Oriented x3, Cooperative, Well developed, Well nourished, No distress, Elderly, Obese ENT Exam: Present: normal ENT inspection, hearing grossly normal Neck: Present: non-tender, full range of motion, supple, normal inspection, trachea midline Breasts: Present: Exam deferred, Nontender Respiratory: Present: chest non-tender, normal breath sounds, no respiratory distress, no accessory muscle use, decreased breath sounds Cardiovascular/Chest: Present: normal peripheral pulses, regular rate, rhythm, no chest tenderness, no edema, no gallop, no JVD, no murmur, no rub Abdomen: Present: Normal bowel sounds, soft, nontender, nondistended, no rebound tenderness, no hepatospenomegaly, obese Extremity: Present: no calf tenderness, lower extremity edema - 2+ bilateral pedal edema, swelling, other - Residual erythema and mild tenderness to palpation of lower extremities bilaterally Skin Exam: Present: other - Erythema and tenderness of lower extremities, multiple pustules on plantar surface of both feet. Lymphatic: Present: no adenopathy Neurologic: Present: clearing hand II-XII nml as tested, no motor/sensory deficits, alert, normal mood/affect, oriented x 3 Appearance: Present: appropriate appearance, appropriate insight, neat, no memory impairment Eye contact: Present: cooperative, good eye contact, normal speech Thoughts: Present: normal thought pattern, no apparent hallucination Assessment/Plan Plan Narrative: We will continue current dual IV antibiotics and reevaluate patient the morning. - Problems/Diagnosis (1) Cellulitis Problem: Acute Qualifiers: Site of cellulitis: extremity Site of cellulitis of extremity: lower extremity Laterality: unspecified laterality Qualified Code(s): L03.119 - Cellulitis of unspecified part of limb (2) Psoriasis with pustules Problem: Acute (3) CAD (coronary artery disease) Problem: Chronic Qualifiers: (4) Diabetes mellitus Problem: Chronic Qualifiers: Diabetes mellitus type: type 2 Diabetes mellitus ad terminal makeup operator insulin use: without mcfp use Diabetes mellitus complication status: without complication Qualified Code(s): E11.9 - Type 2 diabetes mellitus without complications (5) Hypertension Problem: Chronic Qualifiers: Hypertension type: essential hypertension Qualified Code(s): I10 - Essential (primary) hypertension (6) COPD (chronic obstructive pulmonary disease) Problem: Acute Qualifiers: COPD type: COPD with acute exacerbation Qualified Code(s): J44.1 - Chronic obstructive pulmonary disease with (acute) exacerbation (7) Psoriasis with pustules Problem: Chronic
[2021-01-27] MEDS: TRAVOPROST 25 DROP BTL OP SCH (21:05)
[2021-01-27] MEDS: FLUOCINONIDE 15 APPL TUBE TP SCH (21:07)
[2021-01-27] MEDS: ROSUVASTATIN CALCIUM 20 MG TABLET PO SCH (21:07)
[2021-01-28] MEDS: LEVOTHYROXINE SODIUM 125 MCG TABLET PO SCH (06:55)
[2021-01-28] MEDS: PSYLLIUM SEED 1 PACKET PACKET PO SCH (08:08)
[2021-01-28] MEDS: CHOLECALCIFEROL 1,000 UNIT CAPSULE PO SCH (08:08)
[2021-01-28] MEDS: CALCIUM CARBONATE 500 MG TAB.CHEW PO SCH (08:08)
[2021-01-28] MEDS: FERROUS SULFATE 325 MG TABLET PO SCH ×2 (08:08→17:56)
[2021-01-28] MEDS: BUMETANIDE 1 MG TABLET PO SCH (08:09)
[2021-01-28] MEDS: MAGNESIUM OXIDE 400 MG TABLET PO SCH (08:09)
[2021-01-28] MEDS: METOPROLOL SUCCINATE 25 MG TABLET.SA PO SCH (08:09)
[2021-01-28] MEDS: POTASSIUM CHLORIDE 20 MEQ TABLET.SA PO SCH (08:09)
[2021-01-28] MEDS: LISINOPRIL 5 MG TABLET PO SCH (08:09)
[2021-01-28] MEDS: ASPIRIN 81 MG TABLET.DR PO SCH (08:09)
[2021-01-28] MEDS: ASCORBIC ACID 500 MG TABLET PO SCH (08:10)
[2021-01-28] MEDS: TIOTROPIUM PO SCH (08:10)
[2021-01-28] MEDS: FOLIC ACID 1 MG TABLET PO SCH (08:10)
[2021-01-28] MEDS: buPROPion HCL 150 MG TABLET.SA PO SCH ×2 (08:10→17:56)
[2021-01-28] MEDS: CYANOCOBALAMIN 1,000 MCG TABLET PO SCH (08:10)
[2021-01-28] MEDS: CLOBETASOL TP SCH (08:11)
[2021-01-28] MEDS: FORMOTEROL FUMARATE PO SCH ×3 (08:11→21:03)
[2021-01-28] MEDS: BUDESONIDE PO SCH ×3 (08:11→21:03)
[2021-01-28] MEDS: BRIMONIDINE TARTRATE 50 DROP BTL OP SCH ×3 (08:11→21:03)
[2021-01-28] MEDS: CALCIPOTRIENE TP SCH (08:11)
[2021-01-28] MEDS: CLOTRIMAZOLE/BETAMET DIPROP 15 APPL TUBE TP SCH ×2 (08:12→21:07)
[2021-01-28] MEDS: ENOXAPARIN SODIUM 40 MG/0.4 ML SYRG SC SCH (11:18)
--- NOTE | 2021-01-28 11:25 | PN ---
Subjective - Date and Time Seen Date: 01/28/21 Time: 11:21 Subjective Narrative: My feet are tender and painful when I walk. Objective - Review of Systems Generalized/Overall Review: Reports: No Symptoms Reported EENTM: Reports: No Symptoms Reported Respiratory: Reports: No Symptoms Reported Cardiac: Reports: No Symptoms Reported Abdominal: Reports: No Symptoms Reported Genitourinary Symptoms: Reports: No Symptoms Reported Musculoskeletal Complaints: Reports: Other - Tenderness of plantar surfaces with ambulation or weightbearing Neurological: Reports: No Symptoms Reported Skin: Reports: Other - Pustules on plantar surfaces and residual erythema of both lower extremities. Endocrine: Reports: No Symptoms Reported - Vitals Vitals: Last Vital Signs Temp 37.0 C 01/28/21 10:25 Pulse 74 01/28/21 10:25 Resp 20 01/28/21 10:25 BP 112/58 01/28/21 10:25 Pulse Ox 93 01/28/21 10:25 - Abnormal Lab Findings Abnormal Lab Findings: Abnormal Lab Results 01/27/21 Range/Units 11:09 Random Glucose 117 H (70-110) mg/dL - Exam Constitutional: Present: Alert, Oriented x3, Cooperative, Well developed, Well nourished, No distress ENT Exam: Present: normal ENT inspection, hearing grossly normal, pharynx normal Neck: Present: non-tender, full range of motion, supple, normal inspection, trachea midline Breasts: Present: Exam deferred, Nontender Respiratory: Present: chest non-tender, lungs clear, normal breath sounds, no respiratory distress, no accessory muscle use Cardiovascular/Chest: Present: normal peripheral pulses, regular rate, rhythm, no chest tenderness, no gallop, no JVD, no murmur, no rub Abdomen: Present: Normal bowel sounds, soft, nontender, nondistended, no rebound tenderness, no hepatospenomegaly, no masses /Rectal: Present: Exam deferred Extremity: Present: pedal edema - Bilateral 2+ pedal edema Skin Exam: Present: warm/dry, no cyanosis, other - Pustules on plantar surfaces and residual erythema of both lower extremities Lymphatic: Present: no adenopathy 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 No additional changes were made to his treatment. - Problems/Diagnosis (1) Cellulitis Problem: Acute Qualifiers: Site of cellulitis: extremity Site of cellulitis of extremity: lower extremity Laterality: unspecified laterality Qualified Code(s): L03.119 - Cellulitis of unspecified part of limb (2) Psoriasis with pustules Problem: Acute (3) CAD (coronary artery disease) Problem: Chronic Qualifiers: (4) Diabetes mellitus Problem: Chronic Qualifiers: Diabetes mellitus type: type 2 Diabetes mellitus fpc insulin use: without fpc use Diabetes mellitus complication status: without complication Qualified Code(s): E11.9 - Type 2 diabetes mellitus without complications (5) Hypertension Problem: Chronic Qualifiers: Hypertension type: essential hypertension Qualified Code(s): I10 - Essential (primary) hypertension (6) COPD (chronic obstructive pulmonary disease) Problem: Acute Qualifiers: COPD type: COPD with acute exacerbation Qualified Code(s): J44.1 - Chronic obstructive pulmonary disease with (acute) exacerbation (7) Psoriasis with pustules Problem: Chronic (8) Neuropathic pain of both feet Problem: Chronic
[2021-01-28] MEDS: GABAPENTIN 300 MG CAPSULE PO SCH ×2 (11:47→21:00)
[2021-01-28] MEDS: WATER FOR INJ IV SCH (11:56)
[2021-01-28] MEDS: VANCOMYCIN IV SCH (11:56)
[2021-01-28] MEDS: ROSUVASTATIN CALCIUM 20 MG TABLET PO SCH (20:58)
[2021-01-28] MEDS: TRAVOPROST 25 DROP BTL OP SCH (21:06)
[2021-01-28] MEDS: FLUOCINONIDE 15 APPL TUBE TP SCH (21:08)
[2021-01-29] MEDS: VANCOMYCIN IV SCH ×2 (00:02→12:35)
[2021-01-29] MEDS: WATER FOR INJ IV SCH ×2 (00:02→12:35)
[2021-01-29] MEDS: LEVOTHYROXINE SODIUM 125 MCG TABLET PO SCH (06:36)
[2021-01-29] MEDS: POTASSIUM CHLORIDE 20 MEQ TABLET.SA PO SCH ×2 (07:35→09:07)
[2021-01-29] MEDS: METOPROLOL SUCCINATE 25 MG TABLET.SA PO SCH ×2 (07:35→09:06)
--- NOTE | 2021-01-29 08:50 | DS ---
(1) Cellulitis Problem: Acute Qualifiers: Site of cellulitis: extremity Site of cellulitis of extremity: lower extremity Laterality: unspecified laterality Qualified Code(s): L03.119 - Cellulitis of unspecified part of limb (2) Psoriasis with pustules Problem: Acute (3) CAD (coronary artery disease) Problem: Chronic Qualifiers: (4) COPD (chronic obstructive pulmonary disease) Problem: Chronic Qualifiers: (5) Hyperlipidemia Problem: Chronic Qualifiers: (6) Hypertension Problem: Chronic Qualifiers: Hypertension type: essential hypertension Qualified Code(s): I10 - Essential (primary) hypertension (7) Diabetes mellitus Problem: Chronic Qualifiers: Diabetes mellitus type: type 2 Diabetes mellitus intermediate card tender insulin use: without intermediate card tender use Diabetes mellitus complication status: without complication Qualified Code(s): E11.9 - Type 2 diabetes mellitus without complications (8) Neuropathy Problem: Acute Date of Discharge:: 01/29/21 Hospital Course: Tree العلي is a 70-year-old white male with past medical history significant for diabetes mellitus type 2 diet-controlled, psoriasis with a acral plantar pustules, coronary artery disease hypertension, hyperlipidemia, hypothyroidism, COPD who was admitted on 01/24/2021 from my office for bilateral cellulitis with plantar pustular psoriasis having failed outpatient treatment with oral antibiotics. He had 5 to 6 days of of IV antibioticsIV Rocephin and vancomycin to cover for MRSA. We also gave him IV Lasix and then transitioned him to oral Bumex from his hydrochlorothiazide. He has been negative on his fluid balance for the last few days. His swelling and erythema is improved. He also noticed that he has been more short of breath with exertion. His last echocardiogram was in 2014 which showed moderate MR and RVSP 32 mm Hg. He is on Symbicort/Spiriva/nebulizers and inhalers for his COPD. We added a low-dose NORM inhibitor to his beta-chaparrita and diuretic. We will change his hydrochlorothiazide to Bumex. We put him on a low-salt diet in addition to his consistent carb diet . He has an appointment with podiatry on February 01 and with his damage cutter in February but we will make an earlier appointment with his damage cutter. He will need a follow-up echocardiogram to see the progression of valvular regurgitation and pulmonary pressures as an outpatient which likely is the cause of his edema on top of his cellulitis. We will also do a CTS of his chest for questionable nodular pleral thickening, RMLLF. He knows about this. He was continued on MTX and clotimazole-bethamesone topical cream for his plantar psoriasis with acral pustules since admission. We will discharge him on oral Omnicef 300 mg p.o. twice daily and doxycycline 100 mg p.o. twice daily for 7-10 more days. We will also keep him on gabapentin for now . His neuropathy could be metabolic ( diabetes) or drug induced ( MTX). He will follow-up with me in 1 week's time. Procedures Performed: none Results and Findings: Pending Mircobiology Results 01/24/21 11:38 Blood Blood Culture - Preliminary NO GROWTH AFTER 48 HOURS 01/24/21 11:20 Blood Blood Culture - Preliminary NO GROWTH AFTER 48 HOURS Lab Pending Results 01/24/21 11:13: Urine Color Yellow, Urine Appearance Clear, Urine pH 6.0, Ur Specific [place] 1.025, Urine Protein Negative, Urine Glucose (UA) Negative, Urine Ketones Negative, Urine Blood Negative, Urine Nitrate Negative, Urine Bilirubin Negative, Urine Urobilinogen Normal, Ur Leukocyte Esterase Negative, Urine RBC None seen, Urine WBC None seen, Ur Epithelial Cells None seen, Urine Bacteria None seen 01/24/21 11:15: SARS-CoV-2 (PCR) Not detected 01/24/21 11:20: WBC 8.6, RBC 4.07 L, Hgb 11.9 L, Hct 38.3 L, MCV 94.1, MCH 29.2, MCHC 31.1 L, RDW 15.6 H, Plt Count 242, MPV 8.9, Immature Gran % (Auto) 1.40 H, Immature Gran # (Auto) 0.12 H, Neutrophils % 75.7 H, Lymphocytes % 13.9 L, Monocytes % 7.2, Eosinophils % 1.3, Basophils % 0.5, Nucleated RBC % 0.0, Neutrophils # 6.5 H, Lymphocytes # 1.20 L, Monocytes # 0.6, Eosinophils # 0.1, Absolute Basophils 0.0 01/24/21 11:20: ESR 23 H 01/24/21 11:20: Sodium 140, Plasma Sodium 140, Potassium 3.5, Chloride 104, Carbon Dioxide 30.2, Anion Gap 9.3, BUN 9, Creatinine 1.00, Est GFR (Non-Af Amer) 78, BUN/Creatinine Ratio 9.0, Random Glucose 114 H, Calcium 8.8, Calcium Adj for Albumin 9.0, Total Bilirubin 0.4, AST 19, ALT 25, Alkaline Phosphatase 138, C-Reactive Prot, Quant 1.6 H, Total Protein 6.7, Albumin 3.3 L 01/24/21 11:20: Mean Blood Glucose 137, Hemoglobin A1c 6.4 H 01/24/21 11:20: B-Natriuretic Peptide 197 01/25/21 06:30: Sodium 142, Plasma Sodium 142, Potassium 3.9, Chloride 103, Carbon Dioxide 31.5, Anion Gap 11.4, BUN 10, Creatinine 1.06, Est GFR (Non-Af Amer) 73, BUN/Creatinine Ratio 9.4, Random Glucose 125 H, Calcium 8.9 01/26/21 06:35: WBC 8.3, RBC 4.04 L, Hgb 11.8 L, Hct 38.5 L, MCV 95.3, MCH 29.2, MCHC 30.6 L, RDW 15.9 H, Plt Count 259, MPV 9.0, Immature Gran % (Auto) 1.30 H, Immature Gran # (Auto) 0.11 H, Neutrophils % 68.4, Lymphocytes % 19.0 L, Monocytes % 8.9, Eosinophils % 1.8, Basophils % 0.6, Nucleated RBC % 0.0, Neutrophils # 5.7, Lymphocytes # 1.57, Monocytes # 0.7, Eosinophils # 0.2, Absolute Basophils 0.1 01/26/21 06:35: Sodium 141, Plasma Sodium 141, Potassium 4.1, Chloride 104, Carbon Dioxide 31.0, Anion Gap 10.1, BUN 9, Creatinine 1.01, Est GFR (Non-Af Amer) 77, BUN/Creatinine Ratio 8.9 L, Random Glucose 108, Calcium 9.1 01/27/21 11:09: Sodium 140, Plasma Sodium 140, Potassium 4.5, Chloride 104, Carbon Dioxide 32.0, Anion Gap 8.5, BUN 13, Creatinine 1.11, Est GFR (Non-Af Amer) 69, BUN/Creatinine Ratio 11.7, Random Glucose 117 H, Calcium 9.4, Vancomycin Trough 17.8 Discharge Location: Home Disposition: Home self-care Condition: Stable Discharge Activity: Activity as tolerated - Elevate legs whenever he can Discharge Diet: Consistent carbs, Low salt Referrals: Abhinav Law MD [Primary Care Provider] - Additional Patient Instructions (free text): Follow up with on February 01 at 9 AM. Follow up with Dr. Law February 05 at 1:30 p.m. LAB--- CBC, BMP in 1 week please have it done before Dr. Law appointment. Follow up with on February 07 at 10:15 a.m. Tubigrips to both legs. Prescriptions (Any new or edited meds): Bumetanide [Bumex] 2 mg PO DAILY #30 tab Transmission Status: Pending to [place], [place] Doxycycline Monohydrate 100 mg PO BID #20 tab Transmission Status: P[place] to [place] Gabapentin [Neurontin] 300 mg PO BID #60 cap Transmission Status: Pending to [place] Cefdinir [Omnicef] 300 mg PO Q12H #20 cap Transmission Status: Pending to [place] Lisinopril [Zestril] 5 mg PO DAILY #30 tab Transmission Status: Pending to [place] Complete Home Medications List: Complete Home Medication List: Atorvastatin Calcium 80 mg PO HS 08/19/17 Cyanocobalamin [Vitamin B-12] 1,000 mcg PO DAILY MDD takes 1.5 tablets 08/19/17 Multivitamin with Iron [Multivitamins with Iron] 1 ea PO DAILY 08/19/17 Potassium Chloride [Klor-Con M20] 20 meq PO DAILY 08/19/17 Travoprost [Travatan Z] 1 drp OP HS 08/19/17 traMADol HCL [Tramadol HCl] 50 mg PO Q6H PRN 08/19/17 ascorbic acid (vitamin C) 500 mg capsule 500 mg PO DAILY cap 03/31/18 Magnesium Oxide [Magnesium] 400 mg PO DAILY 04/10/18 Albuterol Sulfate 2.5 mg INHALATION PRN 01/09/19 Ferrous Sulfate 325 mg PO BID 01/09/19 cholecalciferol (vitamin D3) 25 mcg (1,000 unit) capsule 1,000 unit PO DAILY 03/29/19 albuterol sulfate 90 mcg/actuation aerosol inhaler 2 inh IH Q8H PRN 10/06/20 brimonidine 0.2 % eye drops 1 drp OP BID 10/06/20 metoprolol succinate 25 mg tablet,extended release 24 hr 25 mg PO DAILY 10/06/20 ipratropium 0.5 mg-albuterol 3 mg (2.5 mg base)/3 mL nebulization soln 3 ml IH PRN #90 ml 10/11/20 tiotropium bromide 2.5 mcg/actuation mist for inhalation 2 puff IH DAILY #4 g 10/11/20 bupropion HCl 150 mg tablet,12 hr sustained-release 150 mg PO BID #180 ea 10/17/20 levothyroxine 125 mcg tablet 125 mcg PO DAILY #90 tab 10/17/20 clotrimazole-betamethasone 1 %-0.05 % topical cream 1 applic TP BID 14 Days #45 g 11/03/20 calcium carbonate 500 mg calcium (1,250 mg) tablet 500 mg PO DAILY 01/17/21 folic acid 1 mg tablet 1 mg PO DAILY 01/17/21 methotrexate sodium 2.5 mg tablet 2.5 mg PO QWEEK 01/17/21 Budesonide/Formoterol Fumarate [Budesonide-Formoterol 80-4.5] 2 puff IH BID 01/24/21 Clobetasol/Calcipotriene [Calcipotr 0.005%-Clobeta 0.05%] 60 gm TP DAILY 01/24/21 Fluocinonide/Emollient Base [Fluocinonide-E 0.05% Cream] 15 gm TP HS 01/24/21 Wheat Dextrin [Benefiber] 1 ea PO DAILY 01/24/21 Aspirin [Aspirin EC] 81 mg PO DAILY 01/25/21 Bumetanide [Bumex] 2 mg PO DAILY #30 tab 01/29/21 Cefdinir [Omnicef] 300 mg PO Q12H #20 cap 01/29/21 Doxycycline Monohydrate 100 mg PO BID #20 tab 01/29/21 Gabapentin [Neurontin] 300 mg PO BID #60 cap 01/29/21 Lisinopril [Zestril] 5 mg PO DAILY #30 tab 01/29/21 Amb Orders for Discharge: Basic Metabolic Panel Time Frame: 1 Week, Facility: [facility], Location: Laboratory CBC Time Frame: 1 Week, Facility: [facility], Location: Laboratory Forms: Patient Portal Registration
[2021-01-29] MEDS: CHOLECALCIFEROL 1,000 UNIT CAPSULE PO SCH (09:04)
[2021-01-29] MEDS: MAGNESIUM OXIDE 400 MG TABLET PO SCH (09:04)
[2021-01-29] MEDS: ASCORBIC ACID 500 MG TABLET PO SCH (09:04)
[2021-01-29] MEDS: LISINOPRIL 5 MG TABLET PO SCH (09:04)
[2021-01-29] MEDS: CALCIUM CARBONATE 500 MG TAB.CHEW PO SCH (09:04)
[2021-01-29] MEDS: FOLIC ACID 1 MG TABLET PO SCH (09:04)
[2021-01-29] MEDS: CLOBETASOL TP SCH (09:05)
[2021-01-29] MEDS: FERROUS SULFATE 325 MG TABLET PO SCH (09:05)
[2021-01-29] MEDS: buPROPion HCL 150 MG TABLET.SA PO SCH (09:05)
[2021-01-29] MEDS: ASPIRIN 81 MG TABLET.DR PO SCH (09:05)
[2021-01-29] MEDS: BUMETANIDE 1 MG TABLET PO SCH (09:05)
[2021-01-29] MEDS: BUDESONIDE PO SCH (09:05)
[2021-01-29] MEDS: FORMOTEROL FUMARATE PO SCH (09:05)
[2021-01-29] MEDS: CALCIPOTRIENE TP SCH (09:05)
[2021-01-29] MEDS: BRIMONIDINE TARTRATE 50 DROP BTL OP SCH (09:05)
[2021-01-29] MEDS: CYANOCOBALAMIN 1,000 MCG TABLET PO SCH (09:05)
[2021-01-29] MEDS: CLOTRIMAZOLE/BETAMET DIPROP 15 APPL TUBE TP SCH (09:06)
[2021-01-29] MEDS: PSYLLIUM SEED 1 PACKET PACKET PO SCH (09:06)
[2021-01-29] MEDS: TIOTROPIUM PO SCH (09:06)
[2021-01-29] MEDS: GABAPENTIN 300 MG CAPSULE PO SCH (09:07)
[2021-01-29 09:45] LABS: Hematocrit 37.5 % (42.0-52.0); Hemoglobin 11.6 gm/dL (13.5-18.0); Mean Cell Volume 94.9 fl (78-100); Mean Corpuscular Hemoglobin 29.4 pg (27-31); Mean Corpuscular Hgb Conc 30.9 g/dl (32-36); Mean Platelet Volume 8.8 fl (8-11.3); Platelet Count 259 K/mm3 (150-450); Red Blood Count 3.95 M/mm3 (4.7-6.0); Red Cell Distribution Width 15.9 % (11.5-14.0); White Blood Count 8.8 K/mm3 (4.0-10.5)
[2021-01-29 09:54] LABS: Total Cells Counted 100
[2021-01-29 10:08] LABS: Anion Gap 11.4 mmol/L (6.8-13.8); BUN/Creatinine Ratio 9.3 (9.0-21.6); CRP 1.3 mg/dL (0.0-0.9); Calcium * 9.3 mg/dL (7.9-10.9); Carbon Dioxide 30.9 mmol/L (24-32.6); Estimated Creat Clear 65.3; Potassium 4.3 mmol/L (3.4-4.6)
[2021-01-29 10:37] LABS: Atypical (Reactive) Lymph 1 % (0-2); Eosinophil 2 % (0-3); Lymphocyte 15 % (20-51); Monocyte 8 % (0-9); Neutrophil 74 % (42-75); Neutrophil # 6.5 K/mm3 (1.3-6.0); Platelet Estimate Normal (NORMAL)
[2021-01-29 10:38] LABS: RBC Morphology Normal (NORMAL)
[2021-01-29] MEDS: ENOXAPARIN SODIUM 40 MG/0.4 ML SYRG SC SCH (12:35)
[2021-01-29 15:04] VITALS: BP 118/57
[2021-01-31] MEDS ORDERED: METHOTREXATE SODIUM 2.5 MG TABLET PO SCH (09:00)
== END 2021-01-29 15:04 | disposition home or self-care (01) | DRG 603 ==
LOC: CCFAL → MS 10:36
PROVIDERS: ADMIT Internal Medicine; ATTEND Internal Medicine